=== PATIENT | female | born 2005 | race Caucasian/White ===

== ENCOUNTER 2023-01-20 15:00 | Outpatient (OUT) | payer OTHER, SELFPAY ==
--- NOTE | 2023-01-20 15:50 | CA_ITS ---
Patient: MADELIN BUSTAMANTE Exam Date: 01/20/2023 : 2005 Gender:F Ordering : DR Chuckie Cornelius . Admission #: [id number] Family : Order #: [id number] CLICK HERE TO VIEW EXAM ECHOCARDIOGRAM REPORT PROCEDURE: CA ECHO DOPPLER COMPLETE INDICATIONS: Chest pain COMPARISON: None. DESCRIPTION: COMPLETE ECHOCARDIOGRAM Real-time transthoracic echocardiography with 2D, M-mode, spectral and color flow Doppler performed. QUALITY: Technical quality was excellent. LEFT VENTRICLE: Normal chamber size. Normal left ventricular wall thickness. LV EF: Global left ventricular systolic function is normal. Visual estimation of left ventricular ejection fraction is 65%. No significant wall motion abnormalities. DIASTOLIC: Normal diastolic function. ATRIAL SEPTUM: Inadequately seen. LEFT ATRIUM: Normal chamber size. RIGHT ATRIUM: Normal chamber size. RIGHT VENTRICLE: Normal chamber size. Normal right ventricular systolic function. TRICUSPID VALVE: Normal mobility and thickness. No stenosis with trivial regurgitation. No evidence of pulmonary hypertension. RVSP 23mmHg MITRAL VALVE: Normal mobility and thickness. No evidence of mitral valve stenosis. There is no mitral annular calcification. Trivial mitral regurgitation. AORTIC VALVE: Normal trileaflet appearance. No visible sclerosis. Normal leaflet mobility. No evidence of aortic valve stenosis. No aortic regurgitation. AORTIC ROOT: Normal diameter and appearance. PULMONIC VALVE: Normal thickness and mobility. No stenosis. Trivial regurgitation. PERICARDIUM: No evidence of pericardial effusion. IVC: Collapses with inspirations. Normal size. CONCLUSION: Essentially normal echocardiogram Adult Echocardiography Procedure Report Left Ventricle LVEDD (3.7 - 5.6 cm): 4.52 cm, 4.32 cm LVESD (2.2 - 4.0 cm): 3.20 cm, 3.07 cm LVIVS thickness (0.6 - 1.2 cm): 0.53 cm, 0.61 cm LVPW thickness (0.5 - 1.0 cm): 0.68 cm e': 0.19 m/s E - e': 4.46 LVOT Max Gradient: 2.58 mm[Hg], 2.37 mm[Hg] LVOT Area (cm2): 0.79 m/s Peak Velocity (LVOT): 0.80 m/s, 0.77 m/s Mean Velocity (LVOT): 0.54 m/s LVOT Diameter 1.70 cm Left Ventricular Ejection Fraction: 69.97 % Left Atrium LA Volume Index (2D A2C): 23.10 ml/m2 Left Atrium Systolic Dimension: 2.55 cm Mitral Valve MV E to A Ratio: 1.50, 1.30 Mitral Valve A-Wave Peak Velocity: 0.60 m/s Mitral Valve E-Wave Peak Velocity: 0.84 m/s Right Ventricle RV Internal Diastolic Dimension: 2.74 cm Aorta AO Root Diam: 2.05 cm Ascending Ao Diam: 2.22 cm Aortic Valve AoV Area (Peak Russell): 1.51 cm2, 1.50 cm2, 1.52 cm2 AoV Area (VTI): 1.51 cm2, 1.52 cm2, 1.50 cm2 Peak Velocity(Antegrade Flow): 1.22 m/s, 1.15 m/s Peak Gradient(Antegrade Flow): 5.93 mm[Hg], 5.32 mm[Hg] Mean Velocity(Antegrade Flow): 0.86 m/s, 0.79 m/s Mean Gradient(Antegrade Flow): 3.32 mm[Hg], 2.87 mm[Hg] Velocity Time Integral: 23.30 cm, 22.06 cm Tricuspid Valve Peak Velocity (Regurgitant Flow): 1.55 m/s, 1.80 m/s, 2.25 m/s Pulmonic Valve Mean Gradient: 2.15 mm[Hg], 2.12 mm[Hg], 2.63 mm[Hg], 2.53 mm[Hg] Mean Velocity: 0.69 m/s, 0.68 m/s, 0.77 m/s, 0.75 m/s Peak Velocity: 1.00 m/s Peak Gradient: 3.98 mm[Hg], 3.75 mm[Hg], 4.21 mm[Hg], 3.98 mm[Hg] Right Atrium Right Atrium Systolic Pressure: 23.96 ml, 23.96 ml Dictated by: Davnote Stark M.D. on 01/20/2023 at 16:28 Approved by: Davonte Stark M.D. on 01/20/2023 at 16:33
== END 2023-01-20 15:01 | disposition home or self-care (01) ==
LOC: CARD 15:01
PROVIDERS: PCP Family Medicine; Visit Provider Family Medicine
DX: R07.9 Chest pain, unspecified (principal)
CPT/HCPCS: 93306

== ENCOUNTER 2024-04-10 10:07 | Outpatient (OUT) | payer OTHER, SELFPAY ==
--- OUTSIDE RECORDS SUMMARY | 2024-04-10 10:16 | XMS_ITS | CCD ---
Author Organization [facility] Care Team Providers Care Hall Porter Name Role Phone DR IVAN CORNELIUS Consulting Unavailable DEISIY, DR LOVE Attending Unavailable DEISIY, DR LOVE Admitting Unavailable DEISIY, DR LOVE Primary Care Unavailable Ivan Cornelius MD Primary Care Provider [phone] LANNY PEÑA Referring Unavailable HOY, IVAN M Primary Care Unavailable HOY, IVAN M Primary Care Unavailable REBEL, LANNY M Referring Unavailable HOY, IVAN M Primary Care Unavailable REBEL LANNY M Attending Unavailable REBEL, LANNY M Referring Unavailable HOY, IVAN M Primary Care Unavailable KROTZER, LANNY M Attending Unavailable KROTZER, LANNY M Referring Unavailable HOY, IVAN M Primary Care Unavailable HOY, IVAN M Referring Unavailable HOY, IVAN M Primary Care Unavailable HOY, IVAN M Referring Unavailable HOY, IVAN M Primary Care Unavailable PETER ESTRADA Attending Unavailable HOY, IVAN M Referring Unavailable HOY, IVAN M Primary Care Unavailable Medications Current Medications Medication Drug Class(es) Dates Sig (Normalized) Sig (Original) fluconazole 150 mg oral tablet (1 source) Azole Antifungal Start: 01-13-2024 End: 01-16-2024 fluconazole (DIFLUCAN) 150 mg tablet Indications: Vaginal yeast infection Take one tablet by mouth today. May repeat in 3 days if symptoms persist. 2 tablet 01/13/2024 01/16/2024 Active ibuprofen 800 mg oral tablet (3 sources) Nonsteroidal Anti-inflammatory Drug Start: 01-02-2023 End: 02-09-2024 take 1 tablet by mouth three times daily ibuprofen (MOTRIN) 800 mg tablet Take 1 tablet (800 mg total) by mouth 3 (three) times a day. 21 tablet 01/02/2023 02/09/2024 Discontinued (Therapy completed) ondansetron 4 mg disintegrating oral tablet (4 sources) Serotonin-3 Receptor Antagonist Start: 12-10-2022 End: 02-09-2024 take 1 tablet by mouth every eight hours as needed for nausea ondansetron ODT (ZOFRAN ODT) 4 mg disintegrating tablet Dissolve 1 tablet (4 mg total) on tongue every 8 (eight) hours as needed for nausea for up to 10 doses. 10 tablet 01/23/2024 02/09/2024 Discontinued (Therapy completed) pseudoephedrine hydrochloride 60 mg / triprolidine hydrochloride 2.5 mg oral tablet (3 sources) alpha-Adrenergic Agonist End: 02-09-2024 take 1 tablet by mouth every four hours triprolidine-pseudo ephedrine (APRODINE) 2.5-60 mg tablet Take 1 tablet by mouth every 4 (four) hours. 02/09/2024 Discontinued (Therapy completed) Problems Active Problems Problem Classification Problem Date Documented Date Episodic/Chronic Abdominal pain (4 sources) Pain in pelvis; Translations: [Pelvic and perineal pain] Onset: 02-09-2024 02-09-2024 Episodic Alcohol-related disorders (1 source) Alcohol abuse with intoxication, uncomplicated; Translations: [Alcohol abuse with intoxication, uncomplicated] Onset: 01-23-2024 Chronic Contraceptive and procreative management (3 sources) Patient encounter status; Translations: [Encounter for initial prescription of contraceptive pills] Onset: 04-03-2024 04-03-2024 Episodic Inflammatory diseases of female pelvic organs (3 sources) Acute vaginitis; Translations: [Acute vaginitis] Onset: 01-12-2024 01-12-2024 Episodic Menstrual disorders (6 sources) Dysmenorrhea; Translations: [Dysmenorrhea, unspecified] Onset: 02-09-2024 02-09-2024 Chronic Mycoses (1 source) Candidiasis of vagina; Translations: [Vaginal yeast infection] 01-13-2024 Episodic Nausea and vomiting (2 sources) Vomiting Onset: 01-23-2024 Episodic Other female genital disorders (1 source) Vaginal discharge Onset: 01-12-2024 Episodic Ovarian cyst (2 sources) Cyst of left ovary; Translations: [Unspecified ovarian cyst, left side] Onset: 03-29-2024 02-16-2024 Episodic Screening and history of mental health and substance abuse codes (2 sources) Standardized adult depression screening tool completed ; Translations: [Encounter for screening for depression] Onset: 02-09-2024 02-09-2024 Episodic Unclassified (1 source) Gynecologic Exam Onset: 02-09-2024 Past or Other Problems Problem Classification Problem Date Documented Da te Episodic/Chronic Deficiency and other anemia (1 source) Anemia, unspecified; Translations: [ANEMIA UNSPECIFIED] Onset: 11-30-2021 Episodic Diabetes mellitus without complication (1 source) Other abnormal glucose; Translations: [OTHER ABNORMAL GLUCOSE] Onset: 11-30-2021 Episodic Mood disorders (3 sources) Mood disorders Onset: 02-09-2024 02-09-2024 Syncope (4 sources) Syncope and collapse; Translations: [SYNCOPE AND COLLAPSE] Onset: 11-27-2021 Episodic Results Test Name Value Interpretation Reference Range Facility POCT , urineon 03-22 Beta HCG ( test) Ql (U) Negative [facility] Internal Paint Supervisor Check Completed and Passed Yes [facility] US PELVIC WITH TRANSVAGINALo n 03-29-2024 US PELVIC WITH TRANSVAGINAL US PELVIC WITH TRANSVAGINAL US PELVIC WITH TRANSVAGINAL HISTORY: Left ovarian cyst, pelvic pain COMPARISON: Pelvic ultrasound 02/14/2024 TECHNIQUE: Transabdominal and transvaginal sonographic evaluation of the pelvis. Transabdominal imaging performed to evaluate for extra adnexal pelvic pathology. Transvaginal imaging performed for better delineation of the adnexal and endometrial contents. Color Doppler used. FINDINGS: Uterus: 7.5 x 5.0 x 3.6 cm Endometrial Thickness: 11.6 mm Right Ovary: 3.3 x 3.5 x 1.9 cm Left Ovary: 3.3 x 2.3 x 1.7 cm The uterus demonstrates appropriate size and echo pattern. The endometrium is unremarkable. The ovaries are unremarkable. Normal color flow bilaterally. No adnexal masses demonstrated. Small volume of free fluid adjacent to the left ovary, likely physiologic. IMPRESSION: * Resolution of previously noted hemorrhagic cyst in the left ovary. No further imaging follow-up recommended. Approved by Naya Salas MD on 03/29/2024 1:47 PM Reji Vidal MD have personally reviewed the image(s) and agree with and/or edited the report Finalized by Reji Patel MD on 03/29/2024 1:58 PM Normal [facility] US PELVIC WITH TRANSVAGINALo n 02-15-2024 US PELVIC WITH TRANSVAGINAL US PELVIC WITH TRANSVAGINAL Pelvic ultrasound History:Pelvic pain Comparison: Findings: Transabdominal and transvaginal sonographic evaluation of the pelvis. Transabdominal imaging performed to evaluate for extra adnexal pelvic pathology. Transvaginal imaging performed for better delineation of the adnexal and endometrial contents. Uterus measures 8.4 x 4.0 x 5.5 cm. Endometrial complex measures 1.4 cm. Right ovary is unremarkable measuring 3.4 x 1.5 x 2.6 cm. Left ovary measures 5.5 x 2.7 x 3.9 cm. A lesion is seen in the left ovary measuring 4.3 cm with appearance suggestive of a hemorrhagic cyst. Small volume free pelvic fluid, likely physiologic. Impression: Cystic lesion suggestive of a hemorrhagic cyst in the left ovary. Follow-up pelvic ultrasound is recommended in 6-12 weeks in a woman of reproductive age. Optimally, the exam would take place in the follicular phase, days 3-10, of the menstrual cycle. Recommendations for adnexal cyst follow-up per Society of Radiologists in Ultrasound 2009 consensus statement on management of asymptomatic and ovarian and other adnexal cysts (Neff et al., Radiology 2010 256: 943-54). Finalized by Benny Damico MD on 02/15/2024 7:52 AM Normal [facility] Cytologyon 02-09-2024 Cytology Normal [facility] Comment on above: Result Comment: [facility] [address] [place] [address] Gynecologic Cytology Consultation Patient Name:MADELIN AHUJA:2005 (Age: 19)Gender:FTaken:4Reported:4Physician(s):Lanny Peña, MASOUD-POSTAL SORTING OFFICER ([phone])Copy To: Rec. #:[id number]: #[id number] Final Cytologic Interpretation ThinPrep Pap Test (Cervical): Satisfactory for evaluation. A transformation zone component is present. NEGATIVE FOR INTRAEPITHELIAL LESION OR MALIGNANCY. lrd/02/26/2024 Interpretation performed at [facility], [address] [place] [id number], License number: [id number]. Electronically Signed Out By MIK William, (ASCP) Date of Last Menstrual Period: 01/16/24 Other Clinical Conditions: Z01.419 Bead Maker exam wo/abn findings Source of Specimen ThinPrep Pap Test (Cervical) Thin Prep Pap (WAREHOUSE SHIFT SUPERVISOR) Fee Code(s): G0145 The Pap test is a screening test with an inherent, but low, probability of error. The Pap test is primarily effective for the diagnosis and prevention of squamous cell carcinoma. Regular screening is critical for prevention. ThinPrep liquid-based slides, which meet the Maintenance Mechanic criteria for automated screening, have been screened by the [employer] (as of 12/06/06) along with an additional manual rescreening by a professor of economics and, if indicated, by a pathologist. CHLAMYDIA/GC BY PCRon 2023 CHLAMYDIA/GC BY PCR SPECIMEN SOURCE CERVIX CHLAMYDIA DNA(PCR) Negative (qualifier value) Chlamydia trachomatis not detected by nucleic acid amplification. This does not exclude the possibility of infection because results are dependent on adequate specimen collection. GONORRHOEAE DNA(PCR) Negative (qualifier value) Neisseria gonorrhoeae not detected by nucleic acid amplification. This does not exclude the possibility of infection because results are dependent on adequate specimen collection. Normal [facility] Comment on above: Performed By: #### C #### [facility] ([id number]) [address] [place] [address], [address] [place] [id number] VAGINITIS PANEL PCRon 2023 VAGINITIS PANEL PCR BACT. VAGINOSIS DNA Not detected (qualifier value) Qualitative results are reported based on detection and quantitation of targeted organism markers which include: Lactobacillus spp. (L. crispatus and L. jensenii), Gardnerella vaginalis, Atopobium vaginae, Bacterial Vaginosis Associated Bacteria-2 (BVAB-2) and Megasphaera-1 VAL SPECIES DNA Detected (qualifier value) Val species result based on detection of one or more of the following species: C. albicans, C. tropicalis, C. parapsilosis or C. dubliniensis VAL KRUSEI DNA Not detected (qualifier value) No Val krusei detected VAL GLABRATA DNA Not detected (qualifier value) No Val glabrata detected TRICHOMONAS VAG DNA Not detected (qualifier value) No Trichomonas vaginalis detected NOTE BD MAX Vaginal Panel has not been evaluated for patients under 18 years old. Results for these patients should be reviewed and assessed in accordance with clinical presentation to determine patient diagnosis. Normal [facility] Comment on above: Performed By: #### V PPCR #### [facility] ([id number]) [address] [place] [address], [address] [place] [address] INSULINon 11-28-2021 Insulin 11.3 uIU/mL Normal 2.6-24.9 [facility] Comment on above: Performed By: #### I NSULIN #### [facility] [address] [place] [address] Dr. Jd Brown T4, T3U, FTI LABCORPon 11-28 Free Thyroxine Index 1.8 Normal 1.2-4.9 [facility] Comment on above: Performed By: #### T HYLC #### [facility] [address] [place] [address] Dr. Jd Brown T3 Uptake 29 % Normal 23-[address] [facility] Comment on above: Performed By: #### T HYLC #### [facility] [address] [place] [address] Dr. Jd Brown T4 [Mass/Vol] 6.1 ug/dL Normal 4.5-12.0 [facility] Comment on above: Performed By: #### T HYLC #### [facility] [address] [place] [address] Dr. Jd Brown CBC AUTO DIFFon 11-27-2021 BASO # 0.1 103/ul Normal 0.0-0.1 [facility] Comment on above: Performed By: #### C BC #### [facility] [address] [place] [address] Dr. Jd Brown Basophils/100 WBC (Bld) 0.8 % Normal 0.2-2.0 [facility] Comment on above: Performed By: #### C BC #### [facility] [address] [place] [address] Dr. Jd Brown EO # 0.1 103/ul Normal 0.0-0.[address] [facility] Comment on above: Performed By: #### C BC #### [facility] [address] [place] [address] Dr. Jd Brown Eosinophils/100 WBC (Bld) 1.0 % Normal 0.9-7.0 [facility] Comment on above: Performed By: #### C BC #### [facility] [address] [place] [address] Dr. Jd Brown Erythrocyte distribution width (RBC) [Ratio] 12.3 % Normal 11.0-15.0 [facility] Comment on above: Performed By: #### C BC #### [facility] [address] [place] [address] Dr. Jd Brown Hematocrit (Bld) [Volume fraction] 40.1 % Normal 36.0-48.0 [facility] Comment on above: Performed By: #### C BC #### [facility] [address] [place] [address] Dr. Jd Brown Hemoglobin (Bld) [Mass/Vol] 13.2 g/dL Normal 12.0-16.0 [facility] Comment on above: Performed By: #### C BC #### [facility] [address] [place] [address] Dr. Jd Brown IG # 0.02 10e3/ul Normal 0.00-0.03 [facility] Comment on above: Performed By: #### C BC #### [facility] [address] [place] [address] Dr. Jd Brown IG % 0.3 % Normal 0.0-0.[address] [facility] Comment on above: Performed By: #### C BC #### [facility] [address] [place] [address] Dr. Jd Brown LYMPH # 1.4 103/ul Normal 1.2-3.[address] [facility] Comment on above: Performed By: #### C BC #### [facility] [address] [place] [address] Dr. Jd Brown Lymphocytes/100 WBC (Bld) 22.9 % Normal 20.5-60.0 [facility] Comment on above: Performed By: #### C BC #### [facility] [address] [place] [address] Dr. Jd Brown MANUAL DIFF REQ NO Normal [facility] Comment on above: Performed By: #### C BC #### [facility] [address] [place] [address] Dr. Jd Brown MCH (RBC) [Entitic mass] 31.1 pg Normal 26.7-34.0 [facility] Comment on above: Performed By: #### C BC #### [facility] [address] [place] [address] Dr. Jd Brown MCHC (RBC) [Mass/Vol] 32.9 g/dL Normal 29.9-35.2 [facility] Comment on above: Performed By: #### C BC #### [facility] [address] [place] [address] Dr. Jd Brown MCV (RBC) [Entitic vol] 94.4 fL Normal 81.0-99.[address] [facility] Comment on above: Performed By: #### C BC #### [facility] [address] [place] [address] Dr. Jd Brown MONO # 0.5 103/ul Normal 0.3-0.[address] [facility] Comment on above: Performed By: #### C BC #### [facility] [address] [place] [address] Dr. Jd Brown Monocytes/100 WBC (Bld) 8.1 % Normal 1.7-12.0 [facility] Comment on above: Performed By: #### C BC #### [facility] [address] [place] [address] [address] Jd Brown NEUT # 4.1 103/ul Normal 1.4-6.5 [facility] Comment on above: Performed By: #### C BC #### [facility] [address] [place] [address] Dr. Jd Brown Neutrophils/100 WBC (Bld) 66.9 % Normal 43.0-75.0 [facility] Comment on above: Performed By: #### C BC #### [facility] [address] [place] [address] Dr. Jd Brown Platelet mean volume (Bld) [Entitic vol] 9.8 fL Normal 9.5-13.[address] [facility] Comment on above: Performed By: #### C BC #### [facility] [address] [place] [address] Dr. Jd Brown PLT 263 103/ul Normal 150-[address] [facility] Comment on above: Performed By: #### C BC #### [facility] [address] [place] [address] Dr. Jd Brown RBC 4.25 106/ul Normal 4.20-5.40 [facility] Comment on above: Performed By: #### C BC #### [facility] [address] [place] [address] Dr. Jd Brown WBC 6.2 103/ul Normal 4.0-11.0 [facility] Comment on above: Performed By: #### C BC #### [facility] [address] [place] [address] Dr. Jd Brown GLYCOHEMOGLOBIN A1Con 2021 ADA RECOMMENDATION SEE BELOW Normal [facility] Comment on above: Result Comment: ADA RECOMMENDED LIMIT 4.0 - 6.0 ADA THERAPEUTIC TARGET < 7.0 ACTION SUGGESTED > 7.0 Performed By: #### A 1C #### [facility] [address] [place] [address] Dr. Jd Brown Glucose [Mass/Vol] 94 mg/dL Normal [facility] Comment on above: Performed By: #### A 1C #### [facility] [address] [place] [address] [address] Jd Brown HbA1c (Bld) [Mass fraction] 4.9 % Normal 4.5-6.2 [facility] Comment on above: Performed By: #### A 1C #### [facility] [address] [place] [address] [address] Jd Brown IRONon 11-27-2021 Iron [Mass/Vol] 47.0 ug/dL Critically low 50.0-170.0 [facility] Comment on above: Performed By: #### I LAURA #### [facility] [address] [place] [address] [address] Jd Brown LIPID PROFILEon 11-27-2021 CHOL-HDL RATIO NORM SEE BELOW Normal [facility] Comment on above: Result Comment: 3.3 - 4.4 LOW RISK 4.4 - 7.1 AVERAGE RISK 7.1 - 11.0 MODERATE RISK >11.0 HIGH RISK Performed By: #### T SH, LIPID, CMP #### [facility] [address] [place] [address] [address] Jd Brown Cholesterol [Mass/Vol] 177 mg/dL Normal 104-[address] [facility] Comment on above: Performed By: #### T EMELI, LIPID, CMP #### [facility] [address] [place] [address] Dr. Jd Brown Cholesterol in HDL [Mass/Vol] 66 mg/dL Normal 29-[address] [facility] Comment on above: Performed By: #### T EMELI, LIPID, CMP #### [facility] [address] [place] [address] [address] Jd Brown Cholesterol in LDL [Mass/Vol] 87.8 mg/dL Normal 46.0-140.[address] [facility] Comment on above: Performed By: #### T SH, LIPID, CMP #### [facility] [address] [place] [address] [address] Jd Brown Cholesterol.total/Ch olesterol in HDL [Mass ratio] 2.7 {ratio} Normal [facility] Comment on above: Performed By: #### T SH, LIPID, CMP #### [facility] [address] [place] [address] [address] Jd Brown HDL NORMAL > or = 60 mg/dl - LO W CARDIOVASCULAR RISK <40 mg/dl - HIGH CARDIOVASCULAR RISK Normal [facility] Comment on above: Performed By: #### T EMELI, LIPID, CMP #### [facility] [address] [place] [address] [address] Jd Brown LDL CALC NORMAL SEE BELOW Normal [facility] Comment on above: Result Comment: <100 mg/dl OPTIMAL 100 - 129 mg/dl NEAR OR ABOVE OPTIMAL 130 - 159 mg/dl BORDERLINE HIGH 160 - 189 mg/dl HIGH >190 mg/dl VERY HIGH Performed By: #### T EMELI, LIPID, CMP #### [facility] [address] [place] [address] Dr. Jd Brown Triglyceride [Mass/Vol] 116 mg/dL Normal 53-208 [facility] Comment on above: Performed By: #### T EMELI, LIPID, CMP #### [facility] [address] [place] [address] [address] Jd Brown VLDL CALC 23.2 mg/dL Normal [facility] Comment on above: Performed By: #### T EMELI, LIPID, CMP #### [facility] [address] [place] [address] Dr. Jd Brown PROF 14(COMP METB)on 022 Albumin [Mass/Vol] 4.2 g/dL Normal 3.4-5.0 [facility] Comment on above: Performed By: #### T EMELI, LIPID, CMP #### [facility] [address] [place] [address] Dr. Jd Brown Albumin/Globulin [Mass ratio] 1.4 {ratio} Normal [facility] Comment on above: Performed By: #### T EMELI, LIPID, CMP #### [facility] [address] [place] [address] Dr. Jd Brown ALP [Catalytic activity/Vol] 68 U/L Normal 46-116 [facility] Comment on above: Performed By: #### T SH, LIPID, CMP #### [facility] [address] [place] [address] Dr. Jd Brown ALT [Catalytic activity/Vol] 15 U/L Normal 14-59 [facility] Comment on above: Performed By: #### T EMELI LIPID, CMP #### [facility] [address] [place] [address] Dr. Jd Brown Anion gap [Moles/Vol] 11.2 mmol/L Normal [facility] Comment on above: Performed By: #### T EMELI LIPID, CMP #### [facility] [address] [place] [address] Dr. Jd Brown AST [Catalytic activity/Vol] 14 U/L Critically low 15-37 [facility] Comment on above: Performed By: #### T EMELI LIPID, CMP #### [facility] [address] [place] [address] Dr. Jd Brown Bilirubin [Mass/Vol] 0.4 mg/dL Normal 0.2-1.0 [facility] Comment on above: Performed By: #### T EMELI LIPID, CMP #### [facility] [address] [place] [address] Dr. Jd Brown Calcium [Mass/Vol] 9.3 mg/dL Normal 8.5-10.1 [facility] Comment on above: Performed By: #### T EMELI LIPID, CMP #### [facility] [address] [place] [address] Dr. Jd Brown Chloride [Moles/Vol] 103 mmol/L Normal 98-[address] [facility] Comment on above: Performed By: #### T EMELI LIPID, CMP #### [facility] [address] [place] [address] Dr. Jd Brown CO2 [Moles/Vol] 29.5 mmol/L Normal 21.0-32.0 [facility] Comment on above: Performed By: #### T EMELI LIPID, CMP #### [facility] [address] [place] [address] Dr. Jd Brown Creatinine [Mass/Vol] 0.70 mg/dL Normal 0.55-1.02 [facility] Comment on above: Performed By: #### T EMELI, LIPID, CMP #### [facility] [address] [place] [address] [address] Jd Brown EGFR-AF PORTUGUESE >60 Normal >=60 [facility] Comment on above: Performed By: #### T SH, LIPID, CMP #### [facility] [address] [place] [address] [address] Jd Brown EGFR-NON AF PORTUGUESE >60 Normal >=[address] [facility] Comment on above: Performed By: #### T SH, LIPID, CMP #### [facility] [address] [place] [address] [address] Jd Brown Globulin (S) [Mass/Vol] 3.0 g/dL Normal [facility] Comment on above: Performed By: #### T SH, LIPID, CMP #### [facility] [address] [place] [address] Dr. Jd Brown Glucose [Mass/Vol] 88 mg/dL Normal 74-106 [facility] Comment on above: Performed By: #### T SH, LIPID, CMP #### [facility] [address] [place] [address] Dr. Jd Brown Potassium [Moles/Vol] 3.7 mmol/L Normal 3.5-5.[address] [facility] Comment on above: Performed By: #### T EMELI, LIPID, CMP #### [facility] [address] [place] [address] Dr. Jd Brown Protein [Mass/Vol] 7.2 g/dL Normal 6.4-8.2 [facility] Comment on above: Performed By: #### T SH, LIPID, CMP #### [facility] [address] [place] [address] Dr. Jd Brown Sodium [Moles/Vol] 140 mmol/L Normal 136-145 [facility] Comment on above: Performed By: #### T SH, LIPID, CMP #### [facility] [address] [place] [address] Dr. Jd Brown Urea nitrogen [Mass/Vol] 12.0 mg/dL Normal 6.4-19.[address] [facility] Comment on above: Performed By: #### T SH, LIPID, CMP #### [facility] [address] [place], [place] [address] Dr. Jd Brown Urea nitrogen/Creatinine [Mass ratio] 17.1 mg/mg Normal [facility] Comment on above: Performed By: #### T SH, LIPID, CMP #### [facility] [address] [place], [place] [address] Dr. Jd Brown TSHon 11-27-2021 TSH 0.888 uIU/mL Normal 0.516-4.130 [facility] Comment on above: Performed By: #### T EMELI, LIPID, CMP #### [facility] [facility] [address] [address] [address] Jd Brown Coding Summaryon 07-11-2021 Coding Summary HTMLBase 64 SkrccpaeZXf5pHm+PGhlY WQ+QX2JRNHwQ90wqXPonR 1AR7lUIS6CMCCURFLCNJ7 DVK0jzMS8SJiuX4GogjAr AnomsRCmAJ86BNt7BSJ0a FbtKBiroG2vzLZyW2q7Wi OrBL20zC58QIzrCHNaDaR 3LjZpbjsgbWFy H1huPwPxuMDxUqg+PHRhY mxlIHdpZHRoPScxMDAlJy MrsHoaWZ4oHq6kEKQuQXE vbGxhcHNlOiBj a3ecUVEjBAecXR3rhSbaC 2CyrAI8GJJrc1l3Ti67tG I+KPUeGYK3eGltJEoeq90 2ZlElw2noFVG0 zAOaIZulPCV9R90yx6C0W IAvSHGcXRR6xPW3pB7zbA zprnbyY0QneHRpVtC1ELP 4iOFfhI0fvDyk ctmwkL9bYfy+L05LWL3VC JAORU6HQon8C6GwHgtzxZ I+ES30HDPhDF54jOUrvHE bb1bueGw5CqIx QWUeXXN2cLhuEDwtq4MqC LEbL86rnJSvz5Q2QKZkyX ixyXJsUlBmlOG5xT0aJMl orygdy2jppifl Tdaih6gohd85hN81X50fJ LwdBRTsCKO3UGIeMMTraX rpde9xeC8hAa6+CRimu7b pn6rpoOt1PiHr LIAvycTbuAzfFKO0n0FpT b84D5PmkSsqb8NpAmm6up 98wELbr9B9lVF2VUeaTJT hvU9nEMxsSlJ7 XMCxCuFuqV09zCYgZErsG f3ppMsukYvxRH9pUWYfky miDJWjnF5cDDPxeDLkgEj oFW5jSRSuokiy a643DoTyMYG4BWRmtAJwU 3TcwI2qIzZsDXBwZHMbQ6 YuzHRiEPzyT834SYnfHoI 2NZEjwoLqC7Jn CPFjyMnbKjU8y2B3Jf5Nx 4QlbehtMKV6BEgzZBQ9Wn NqIlJdIeO6G4UzYvz7RYO ucWnwZS1vT4Xe RXQctzlnxboizFF0QVMcV LOrqQ50cIHpGWxmHh7tf1 A0b710LDFdTTSovU23Up7 udDogMTBwdCBU jB2puqtkr3rpiagpKwUgP MCwIRr3UKi7WBPjsHjhAb DgPAO0BaR5DCY9vRAzvF1 cfQogqokqrZ1o Oyc+E74wbV2lRGH1VYL6e hliDDXhqdCmCJ20HV92L2 RyPjwvdGFibGU+PGRpdiB gjIwyKV1uVrQv f0rtr3PxUCezN3CrCYGdL TtqOma2TAJgYZP6iOO0dM 6sRRDnAQgdq9Q9pQN1M4O qhrZnoe7of0yg YDZbVZyoQ70mfXFgd0E3W UFtiEX1DYFwdCmcCeKrcZ 93Oyc+XBKecKcnt2AkIhj xu1nwv4fxnWl9 EiQbSQGlbeIpiSrhFHW7s 6XsRu12C74eUSbmNUHiXY HvVQPgTYWvtBanli2psN1 wIi8+PGNvbCB3 nXH3oB6vTFZiTgH2NGvrP 378BcJnaPCyXjqan1vva7 hsrKm2SbSiAXXamtXuiKy oEIW6e3MmZt06 B56fWMgtKLHiFURbWXHtE VDjkCzrrj8wbD4nRi7+PC 8rw1vjzo14dQ84aKZ+PHR gMLI6bExbFNdh MUNkzM2uSBmnWdJ4WJAtL pHsgB04tWGjKXcrOx4ucN hswHtmZU8yKYMxlyzru52 3WuJfr4guFGLx vVXgKWgbWGR2J30it8M2J QGuIRXkQCW1iJD8gR7eeX lnbjogbGVmdDsgdmVydGl mQFdrTJgfB617 IHRvcDsnPlBhdGllbnQgT uWwFTj8X8NsEab8JGSnpL bqKB0ajPReUTdkFa2yjRq yiDgwPQ6tXXWq chonu607VgRmd4dgJKNod KFnBBkzSPU2H87rg1M4EI VkSTOxXTJ3tCW9bR6xtIx nbjogbGVmdDsg bnZaxCzcMEzpRKrcN928O HRvcDsnPkJpcnRoIERhdG Y9RR89QJ16fPOug1P5hSD 6O6XcEWHhunov qzoflKR7XBYcIJNtjY12A r0ncRgbDv5bZMYtZBV1DN PzrLMvN6VhiE7wLuQdWVM rBIGaK7TzhSRj PQzqU433SJheNwD7RBXic zDuL0ItWXErgXxpXxK6r2 C2Mv1IA1T6DD63MQ21gZR fa0L0bUV7E0Xm YJLcfzetjadkzFP7SYYkK BLvnM33Ip3bgWzaJo1oPS YxGSE7CWZgoHPgQ8RreK8 yOiAjMDAwMDAw Q7ChjMJqSIymQ818KCsrZ sT3WOXuvyZjX3IwQFCmwN isNqB9w8D2Us7FEWa7DZ8 0FT75iLIso0E6 yMG4V2PkMZPtqnzzowuoo NB3DPAkSKZdpN36Cp5xnG dmUe3tNQPlNPW5OHIniFY pM6NjbC9yEmTe ODPdHZAoC8EgcALpTFubR 397PKhbTiJ0ZPGogrJeS0 PrQJVmlPieFfC9k6X3Is6 KRADdCW68PDC0 pVK2DP49OS02X4TjBcqlx GFibGU+PHRhYmxlIHdpZH RoPScxMDAlJyBzdHlsZT0 iNt0wZVDoDYSj mQlxkURsHvSsy8wsXWYiI IbpZR9qwOouB1CfjXO8NW Ooj9q8Fw96C59bE6PyiVX +YRIoeNN7zEF9 lJ8kIpZiLbD3HYwzY719I xDfsGKeVosnr1fhm7krqX b7QtU4GUEawkTsjAnaEOW 2k2HaBl56T18t IHdpZHRoPSIxNSUiIHZhb Kbtxz3loM6qAx8+PGNvbC F2bSG5sO4rEhCiXrW1SDq mP517DjXrlTFz Lnwat6pho7wpwDh1XnApJ EGgyfUdeAtrETR1q3XvYe 19D8OsxMjlq4TfRpo4gd4 1yBFbd5C4nUF0 U9TgRCXdtcwmaGErvSteJ Q8tLRDhfmnzSQQnaU8vYP GrF1o2VmXtUcD7NFndN1Q cawL4AHDsxIUk CNylOWI4M57tn3S0OCQsQ HKjJDO6wHQ5bJ0yhBythr ogbGVmdDsgdmVydGljYWw hOSuxO140NWDi gLmjLAItvM4gBQOeaDHpx OmxMO5vGXSrveflPnVIOE QUGPIXQ1hHVoaMHORNPE8 ANO96YT94oDNk h5Q7gYI0I0ToKLAncyfvv yglgMT2VPChPYMibQ67vA FdNOpsXd7td0F4s405XMK bZRCvaJ89Bj6r vBgkQNDxvQEViB0ncdrbo 5mvopqeHyXbDAZbNHj9RB u1GHEvhZvwBlMxXIF0MtM 2OHY0iBXquV3w oQjpzixmoT9aNzr+MTAvM TgvMjAwMzwvdGQ+PHRkIH D1gFwnSVrlFXCnnP4eBKO vP5z7BrGeGrI0 ARdgE8YqGJWtqgvbDt27x H2uXaDnUsK3BYyaV0Quey O9OMXjaOZqKVynSKZ9F56 vy6G8PWPeJBUi HOG8nJV3nN7yoBzneewqz GVmdDsgdmVydGljYWwtYW udI602DHVeoSezCwK1QSl fUYDsJG40CE94 kCMjc3N6aKY9X7FaVQJih tuvxqlvdEE7OGNkKXFusR 64pGGbYUhlMc4ze2I4p67 5DGYtRGBaxJ29 Fp9lfUesMLUckJUKhZ5fo upkw3vmliruRjIqAGSqEE v9PWk2MAOagXjcTuArMKG 1FlL3CPV1iKFp dR6iuBbaxpcmlE0uAhd+R uVUQPlFMY25RN94oWFnb8 E3dKV3H3UxRLVbixjftoz wjQY1BKZzCGYw jR11jRPgOEgcPb3lg6J3v 804RGHcUPFtiF09Ep4vqO saALHnsMUQfG5srdatp5t vcjogIzAwMDAw KEl7TBs1NGLinMbvRuFuH HC4FnN1CPM2jFNkxT0hiT sinjtwsA4rElm+U9K4P3Z kPjwvdHI+PC90 XQEvAI74sXQzaLNeb4wgl Im3CcUnRKYoAOZ0nNzdRY llj7ItLJUgA13anOZcs2D 6IGNvbGxhcHNl FfAszBV8dB0tQGkzwdeub 9iuyfgiDeyca3jezv85iY 55M88jEPsfANQlRJOqRWJ fWHKvkGwyst9l yC3sWe0+AGHjaYG5nPP9j Q1qDtJjWhZ5AIetY391An PzaHTvTovck0xdw5nodNk 9IjIwJSIgdmFs dFokTCX1q0WuKj12Z57eG HdpZHRoPSIyMCUiIHZhbG bvhf1ljS3iXt4+RL6fp0c pdx66vD43gWX+ XMLwUOK0aPzpRZimKJHor Z1vRPuuCqX8DLMhPsRnkH 16dXJhRRnhTv8thTctdEk lBK1hOTOgzajc r195HwQgy2teJOYajPHlX GfdGWQ1Y43ka8J7MGGcOZ QxHVN9bVG5mW0ksAomcyj gbGVmdDsgdmVy cWutJDrlIAlaC690FGFvc ZmwCeYnzLXcL8wdajCKQS 1lOjwvdGQ+IGWqQXI6pPu kGVohNDXluQ1y BOPyC7m9LfLrSnL2UTgnZ 9NsavQ9NUVkqMIiGTBqxJ DCbO6gwncrj0xilpjqElS pBILuGSs0YWe7 KJNnmChjIjUxDFG7FgL5V AS2hPNdhO6zaPgyfqairG 9wOyc+RklOOjwvdGQ+PHR mHFO1zWpgTFzy PPKuvN0eKSXzQ1h8MsKxM vU7EHemD5OxgkU7RXJejZ LtXUVhgTXPrB9eabnbr6d vcjogIzAwMDAw IPb9BHe6CIIgnEbrZrXqK TZ6GaA7YLP9xHMidT7byR vziffzpY0cKmm+TVJOOjw vdGQ+PHRkIHN0 cDviAVmaCFFxmO9xNDDyO 1n2EdItYmY4GDlqL0Jckv Q5DJXzjUOjZSVcuFSUcQ6 ccjcmc8nowloy MtNyYPChGXu9LDc6LBDna GhsRjUfILQ4ZzU8UFH4sD YygI1bsImwfbmirJ4nHqu +RAD7UHJ5SY20 BA21P0MuNsrnmKXobGJ+P HRhYmxlIHdpZHRoPScxMD JkMkQaoXqpGK8yXs2vQDH yLWNvbGxhcHNl OiB (more content not included)... [facility] Coding Summary HTMLBase 64 EyzncgahIIj6zMh+PGhlY WQ+AX9UGYQkT05dtEGciJ 5GW2mOIE5FDPANRXOGGR6 ZNT0mdLY9SDodD3OjhyHc ThjpjUNhJZ22IKj7QMV4k ZxdYZyeeH4ypNKrX3a0Me ZnCN09kJ34ZTjmMEUnCuJ 3LjZpbjsgbWFy V7vhUmFfuNOrFau+PHRhY mxlIHdpZHRoPScxMDAlJy BcsMzwJM0jIg9eLJNrZHM vbGxhcHNlOiBj h6ysRZLpFOrwUX0dkNceC 6ByaIG8CJArz5i6If91dG I+JAClYXV8mEpsNZcaa52 1NlJkq7fkBSL5 pFJtJNkyTKC3A33kf0X7Q PMcGNLzDPF7uRU6fN3bqU ourvjcS7KncQCtAtW7MIK 8lADghT4uiQux ftymgL1lRpy+T36QPS1OM PIYPU6TOgs4V7BwHrmyyY I+NC82IBWvLK48lGXqyMB lz6cuyKt3XyCr RIMbFOX8wAonAHkog7HsN CGqC87viLFfz8O2KBXlhY vgmEIwEoEjgMT4hW9jGBo ctejyk8hwprsh Ytytj8lpcr08lM58A45uE LupQUUcLVO6ILSuHVDtsD isgj2qsH9wPa7+TPtsr7e az1decGz0IaHw BYNdnlZpaOjtFMQ5o1VsQ p99V0OieHdhu5IlCey3bq 50dOWiy3F4mAM5BBwuBJG hjR5yOQtmWlU9 DELoBpMkdE49sQJgGPweY w4nqQtjlVejQU3rZUBemo cxNMXoiI3uRFBvbABdnBh iAQ8pCANzaxeb g195ZyCmSCU2AWItmDVrD 0FszS8sKzXvAWAhYQKwY6 IevLWgETelI084HFkmTzN 7XFAzfkKhA9Vj BHJbnQddCcE2o4W2Ct0Nq 5ExzucmTZV1FSfcLUC0Hz YwPnScVaC9D6OjNqe9VFX kmLrwND5eT0Eo ARLrjpuvfufndVX8GPAvJ IEqwU87lKAxPUauXp1va9 K2p925GCKwAUNniN11Ue1 udDogMTBwdCBU eA5kyknhc5fghwypLkVmP XToVXo8GFr0HZBekWccBu EjMWA4SkG2UDS0pOOdkF5 lpWndfypwoD5u Oyc+V92hrG6wCNR9WGD8t orgBVVajjEtBZ97TO02B8 RyPjwvdGFibGU+PGRpdiB dpVhxVW3iRjYn d4inf2DlCSbjQ9RxMOXqX LklIcr6PZKhBGT5zFI3gF 0pWYKkLSdmw7N8eXC2Q2J rpmJvmf4ad9oi RDVaBOdvM79kbGKpi8M4L SPywZU1WQDhfFobIaLojW 93Oyc+FTAwvUxbq6RyTxo fk1qmw8ykzUz0 YeYnJHMwikGbbFvfKTS1c 7QlMy85O38wTWrgXRYiCH PkSGArWNDjeXyqki0cbI2 wIi8+PGNvbCB3 lAY4iU0gXXNwWrC6GGwiG 574FqQprLCuMvcto1akh2 tdjQe1LuMhQJOjeeHsxZm oRNC8m6CbAj44 N44lWWtlGOPiOYTcPPOmI WEuzDdwip2rqW4hJx1+PC 6yp5emlx19wN67pAT+PHR bLGN0xSavXYpf KUDgxU3mBBdjYuC9OFLlH xUmuS04aTHoUMmaEu9vxB bluWlfGG6wJNCwrtzed99 7HjJvh0ijGDQj aDUjPFieFGR8P30lr9N6H QGxTOHfKAC9cRO6jF1ihO lnbjogbGVmdDsgdmVydGl yCHxbDHzsV668 IHRvcDsnPlBhdGllbnQgT kUgMOx7X4FnApe9OEBiwK qwGI2kyCGfBAhsWk1teIv ukNibPS5pODBs enzhs515GzRcr4reDYPck QJuOYxhHFA4X42wj5L5MP KfEWBmNFM1lGX7lQ9ccEv nbjogbGVmdDsg zdDlcEozZSeuUTzuC377E HRvcDsnPkJpcnRoIERhdG Q9AV06QE10tOZhp6K8cVT 6P6GdWNAuiehk sncshMR3MSKcXOAlnH78V s2teFozFv8bBHAkHEB0GS JfcOFmJ7NwcE3iWlJdMGS lLSQgW8TunJLg BMlsI228BBchMzU4YLOjo bJhB3YtZFFfeAhkTgQ9m3 P7Dk3DU4I8PD56CD24yTO ri6L5jGH2M0Ly ALAstfajqxhgwCZ1KGBtJ DKxrM12Su1fdOczBo2lMA JtISD3EFQgoYBmH8EhvH9 yOiAjMDAwMDAw R0WnpHRtCBnjU867VFeeH yG2XWBfwoXnL2DmVGRraK vwZaH9y3S9Pf8WEKe9PU1 7DV67gBQol9O8 jDM3X6QwRTYnpagrhagjw MJ9QOTlFRAgcJ74Qd4seN eiQf3cGEAgAUL2NLUozJZ eU6FhoO2fPpXe FJJsEHLbT2LtaYZmCIknG 816JEhnVoF0EWFgjfPrU9 LwGSMbtDkxNgE2s6P3Dy8 VNRCeZG20NVY1 mLI8OT74DX97U1GmKpnay GFibGU+PHRhYmxlIHdpZH RoPScxMDAlJyBzdHlsZT0 iOc1eYOFbHLPg yAyfwFBpIiIyp6ueJCOaK QccUF3yoGuhE0MpgMK6MN Ecg4l1Mz36H37kR7LriWI +QJSvbEU0mPP7 hX1zArSaKbC0OZwuJ708W kEemPBnOmccb8fiy0zglG m2TvY1GEYjpmPazCmvPLH 6r3HtDr63G85j IHdpZHRoPSIxNSUiIHZhb Ktajq5btW6oAh3+PGNvbC Q2iHA8bG3bNgGgPbA3YCw bW924CsDmlJRw Pvvyw6gan9srxZp2TqKmF CRkfyAcuRvyXQU4u4YrQu 73C4ZjtOfzp0IiUae1fm0 0aMRwd3Q4jNU5 G9QkZXYlkqljiBGjcMwsX A8vAKTmrvveVIDtpY0rSQ FoH1k1NeDdEbF1JVutE0D krvV4ASOsdGWr HFnkIVV3W74fl9U7PKPhA JRfSJO7lNN5iP2glQjqis ogbGVmdDsgdmVydGljYWw hWOaoL229LSIz mNxdIMIpyS4vDKLmyTEsk DomMX3gTHAohxkzJhHHMZ OJVGYKA4gBKecCEIDYKK5 GIE19AA19bIDv m8R7zJB7P7DbQQOqniqhn sowxMZ2CKBmXKKgiT24yJ AfPMjxVw8eq7P2h614GUD sOBKmhE43Mv2q hHalKDVipTKBhS1yaggdq 3jtxggyVlDeBTJaAGp2HQ c2LMBrlZugLwUnDVZ8XvR 9JCG2aHUfgW7l rCleeccvqB1fWzd+MTAvM TgvMjAwMzwvdGQ+PHRkIH I3mWimUYqsQAQqnK3uQPE mU7d2CfChYhG5 CQaqE4GwQTBkjbhyQn89i A8yOlNvRzL3HLqlI2Reuk U3FJAijTZeNHowATT1X77 se5N9GIIoFYCz BLF8iJJ3kK8yzZvvaypsy GVmdDsgdmVydGljYWwtYW qtN919SUEkhCmdMhS7VKy aHUZzNU00WS65 mXHce7B1bUG3V6ErXKZir goynqfmdUJ2GDOqSAOmwO 07vNDxFQlgQf7be8T1z81 2VYIlKHPelK61 Xv5vrHsuNYPbjLHEaT3fi nvlu9uhvljyBqAmJDQyWN a0KFv9QBRkbKayQyPgYGS 3BiO8ERX5cLKf iB3jnVvxrbltpQ3wYij+R jZUTDaTGZ58HM95uREsa4 T9wLW7H9MzMWTxqrxnrdf blMV4OGHmLBSz mI96cJGcOYhlJp0mi1Y9c 712RMQtCWIeqT27Qy4ngV ymSUDtuFVZmW5ogqqoz9l vcjogIzAwMDAw WFb3NIh1JPHmrNlcQfKdX RM0RpV7ZHJ6eBBswC5buB mbafqmwQ2eRhp+XP3toaw xzyJ9AP37GH81 M0RvLnwkhCNqnAY+PHRhY mxlIHdpZHRoPScxMDAlJy LhyForEI1bHx0yVTZbNGW vbGxhcHNlOiBj u5efVTQfGDxeBW5cqHchT 0DmeJR2DQHxc7e4Kw68T4 6dY7ByeEB+USQhyXJ7cBQ 3mB9mKfNgUoU6 OCobO784ZjAyyXQcBqfny 9evb2wqbSq8EvVtJLRsmv LotTdhYUC7x4DzHf56F76 sIHdpZHRoPSIy JDLoBPVqcCvivj6meO9oP i8+ARUqcLC2dVW6qJ7pXd DgObN8LNryB612TsQhzPH gRlwpW08tN6Df dXA+XTQjTpd6YVXfnKgzD K4nvQWjJBivOu8cJMI9Ln HoHtKzHIywH6CfHHFbqum vipjpgGW9MJYv UBBmmS87Rx0ufIzdKk6aH XHzAUT8AMVycWJkO5WtvN 9kKpBsJPFaHJJnH5HkzII dHOamK909XMba FqQ1JVFxscMaG5QgXNEen NoiBsM1p0N0Gb2OtHfxiF ZxBF0rAaAvEUd5X4WiUan 1IXLjzTowSA9p fYHzNYgjRv5vjIhyeCefN F1fYQVtmryuf154UeOba8 mkXIMruTSmQAffPQQ1H12 ry2Z3MEYmPZRq FFV4rYY4sS2reTzxlxjyg GVmdDsgdmVydGljYWwtYW asY956GGAgkZjrChEFRgz 6R5TuWpw9ITYg rIzkSE0ffVXmENzlUr1dl JnofOsnCR3fBPGbzhgsz0 16PvQjh3ubQDSmqFUqDQn tCVT9U63mn2P3 SMDjHPOsTYN8iKW0vY0km GlnbjogbGVmdDsgdmVydG ysYYmdMNuiK060OBXliYj mWn0YVuc3R7Xt Tha5DFXpwDtmOG7gaLZeU MuyOy0hqCknnXwlZC4tLS Lqnpqlc706CyAum0nzHBO wcHQgVGltZXM7 S53sl7R0GUPxYZHjIOT8t BA2zM3jaLlxmxxsnUYhbB ohbzPktVizFJihCZeoH93 6IHRvcDsnPlBh eWVyOjwvdGQ+PA29az64T 7UoOnxcOsi1DDOxJSZ9uD C6bY1kCHWhGHfsp3A2dST 6K6QoyfBead2b b2x (more content not included)... [facility] Coding Summary HTMLBase 64 MbtapjehVGq7qLy+PGhlY WQ+YT4LCDVyM31vfXHtoN 4WJ6oRPV2UMOABNVSMEW9 QXC5nnFW9JYncS1GvpaGe UpldbGBuST33QTp9GWP8y SzmEMzudJ0qdOXyD1a8Ka CdAK80sG85SUusNOLrKbM 3LjZpbjsgbWFy M4vnMtBscNTiEjn+PHRhY mxlIHdpZHRoPScxMDAlJy UzeMshIV8eRm5mTDBqILY vbGxhcHNlOiBj r4fyAJXwNXplFU6dfKcvF 6KemGR4VLHcq6c0Wt09lM I+HWAxHQD9iYadZRtho54 0OfYfp0dxRZY9 qNErNQpeFJK0A63cw5I1Z ILiSRXxGPE0aTQ4fM0thR rfwrlaL2ZuhNAbUaS6YJE 1fXFbaG6acAqr frqvdQ2fOfn+Y78EYE0BI IMADS7IFoa6G7BmLeituD I+OU47ITXcEB77wYEpqFX ec2vbpPt8NcLr HMRkMPG1dUqkHKgcb2DqV RQcC65ktUWrm5M4VIDjbC jlrLSkRlLcuIH8pR7zIOz akufsi0tguxgy Oeurp3cphw27vO55L61yO NteRSZtISP9TUBdPEHosW rnuz6iiP2yHp6+VNksn4z nw2jnbRa2FaQw MZNtpcLmeIsiXXE3x7DiJ y42P8KpmRryr7VwRsf5sq 69sAIva4X7nFV2HVdiHRZ wlC6kTHcwCeE7 OLJbIlQijM23aKVeIEdlK k9mcIsybYpeQT8wLSAckb fjFHAohP9eRURyfAIkxXm rPE0jUJVvgftn b807RiJfODS6SMYzbXYhP 5NzpZ7xAoSwCDZgJRBaZ2 IypUNdNXngO740UApePnR 8QZHlmbMfQ8Kf FAIoxSsaTkF1r7E9Lb1Gh 3LarnpfPAD8ASonOVB7Fk TpHcOyFvS7T5SzRar2ZDC mcWqsLM5fI5Qn TTRtiovkstparLL3GCJkY YSsyW84dIQnDJzeWw9as9 I7f907OZDePJCtrC13Ov7 udDogMTBwdCBU cT8ljqnaa9fhwbhkLbKoS GOfIWc1NUm5DFFnyQbpNi YzGPM4SxD1BMH9cNOllL6 zyErrozakzO5u Oyc+D67vvJ0nGXC6WAQ1b xdaZIPiruNyGV03DB36L4 RyPjwvdGFibGU+PGRpdiB jbWdaGQ4wBxOe v8dov0VcADynW5QkBTTkZ OsmTdl4KLKnWZL6xZF1kC 9tECHkWKxfn8S3uXG5F6A lyuTter1ds5za DTTgCVhbX71srAZuz2C6N FAttBX2KAWweLtpXwQrnZ 93Oyc+QHTigPsbb4ZvSbg cc5vob3jihMk1 ZiUoWASumqUvwFraJGE8a 0NtZr25K91vJFdwUAHbIB LhTDXiITFpwHjixw6vzI2 wIi8+PGNvbCB3 rSM6fD9gKVDmPsC8INjaR 944ZbIxkVQxQqrgt8mzi7 bcqSo3DeBnNCRuayVzrTv yOXZ1s5QhJy94 B18dOGxiBQYmWMHhGDHyC HUmgXtkrz6nnV5vKz4+PC 3hg2bgdg99qX70sZO+PHR wGLX1dIpxFQki MRKgqK8jERtqDjC1CKYlU iRhxM55iWNvCQtvLe2htH cfvKmpWZ9yGOIdhncwc69 4MdZgp9epFVDl mPLkWMhxWPJ8B28cy9B1I AUeMSJeSPT3rHT0yH6bsX lnbjogbGVmdDsgdmVydGl hJGvxUCdqP729 IHRvcDsnPlBhdGllbnQgT zIhMKj7M4CrJwy4HKPhkH tdDO5lkHAoRDvpMj6sbLh wpDzbHL4uINUq riwxv903JhDta9ziJDChr LAmEAdjXMV5I99lk6C0RG CsXLPaPUU4mIK9iE9wcYo nbjogbGVmdDsg fyIvoFlaFUeiBHwjD318V HRvcDsnPkJpcnRoIERhdG C5NZ72ZR21pXLmc1P4eDD 5X7SlRFLswlcz rpreyDW4ZBUjOCFroW43O k5frLciAh9yFVOgYNF0AC ZvbCQhD5SfiD6nMjKzYRC gNMBtG7ZzkGCw GQmsY633CTmuOaB5JPGet xBnD8GzNDFfzNzsWaI9m1 Q1Iq0SV9P7GE41RT41nZI qw5E5vMA2W9Zg GJJvjjcjaqtwlNY6BLYlW KKvhA73Px3giMspLg2xXA JqIVB2VXNqnGZcW5GkfL2 yOiAjMDAwMDAw U7EqkDNiXRjsV917EHrzW bQ9LXLcqvHgF1SnCEXrpX lbDiI2r0D7Tn2VFEy8NP2 9DD20eDOuq0L4 eIG7V0XbZSUnkxxmysfzg ED6AABvPOUvqU47In7pyU afVn6fFJLoCPV8HBTzlSS gY0HleM3qUpHo IHDmHYVqM4DoiZOnTDxyX 102LKkaWqL5JJUhrsVwS3 RvCFSzxNppRwS9b2Q7Ep2 XGAQwZP82ZAH5 dVC4JS85LR08H0HyBpnbm GFibGU+PHRhYmxlIHdpZH RoPScxMDAlJyBzdHlsZT0 aEy3sLOKlEDVr oBadkMHmDoTnu7iaMURkV UapSK2jvWhdN1YfwZA6BY Woa5j7Kq51F51yV0EnoQE +JVCljQU5nOV0 aM1yPvXmBbF1MHbbP475P pEffKQfKfzmq1tkt2umxX x4QtK4ZGUtaxJfzLliQBE 0u4CcDj23C79r IHdpZHRoPSIxNSUiIHZhb Kzwfg5fyF9jWw3+PGNvbC B1tOL1bK1jHxOqKhO5OVz qP149HpMxcAEv Gjfqk8rqf1ewuFu8JpCsJ DZamuGasJveYBT1e0ZnWv 78Y7YutMney4BaLah9ld3 9fMNap7V2pDE9 D4ZeHYMysdbjnYOnhHgaF Q9uJVEhzutdCDSduI9bLG FnX7u3KnEoWgZ8HBavQ6Q amlL0WRDuzTAa KXyiKTC1Z51wa1C0PMSrP GInZCY9pVS9iI8nkEccap ogbGVmdDsgdmVydGljYWw bRUvjY795KKBn iSsgYRXntG5tTODifGQna ZcvUC7gHUImigfqRmBCSX HPYVHOA3sSDesSPZYMAJ1 JXI89CY88eTOo f9Q3vKZ7U8NmIFNjkflws ggzjWV1ZMOqKHVzoJ69wI OhNDlwDd3hw8Q9i484WXN eKFPczX34Ri0x jTejNLWsnJMBzS0dvyjmj 8tgjhdtWuPnGZKyWSe7MY y2XTCdeSwnKoItDNU0OhS 6XTM8tYIocY4v lYgdvbqbzQ8jJdg+MTAvM TgvMjAwMzwvdGQ+PHRkIH J0xTuuHDrcUPTmqG0dSGP fN4r5CxXjLjD3 JGxrI7WdQVBdvpcvXh12w Q1aVrDnBoT8OThrL0Lrci B0BRIjuHXtHVqpHQM2S15 zz5M1XKXfLDZz JSS4hAF4dY0kcJsuvdpgl GVmdDsgdmVydGljYWwtYW mdU568YVIbtOkhViZ5OFv gLXQiMY90TF87 uXQzd4T6pYA0L3CpHTDsl yemumiquHF7GDUvJYUaxG 30cPLbGBwwDa9gc9O2e50 9KMBsRZTngC76 Ih1ftPgzZNDxcZGVhW1cf nwyg8ifovmkVkAcPYYjAH a1YOd1QQJkcJkeYvIzDKK 0IrT3ZJC6sPIq sD2wvRrzyxozqW7kHzv+R kMFNSkQWX82MC56sFRmw6 X4hKH8Q7CdTPCujbdiboc etNS0SAXjIQGj nS42oTXfCScjPc7ct9J2m 083DQEoBNJdmP54Uu8ibZ kdHQCkeGYEaQ1voireo1a vcjogIzAwMDAw VIl4GEh0LBIejVhpHkTaE GH0ArJ0BXJ5dECqeE8ebC orrnzywG5nJeg+ET5gknc mgsA0BF11YA96 A8ZlPhmqgQOnkDN+PHRhY mxlIHdpZHRoPScxMDAlJy XhfMmkCY8dPs2pGLGkDZE vbGxhcHNlOiBj q5tyPBMqPRwfQT5evXptP 1CbyOJ7XMXfe7z2Yo64P3 3mO3ElpSN+UDWysOK5sTW 2eZ5vCsXoNpN6 IEplQ593CuThvYAsRdygo 3uqn2rpjXq8OsRsGTFiwq JujBxgACP2x9BjKy65S48 sIHdpZHRoPSIy AMNqHOBzjUkncg8pyZ2dO i8+GZWzxZA0tIV4oK6bFx LgYyT1RYktF686HxUphTY zZljiD11bT6Mj dXA+PFTuOcd6EAJdqWlyX F9ujCCsHOzfTl0vOHE4Pu NkAzKiCLpdT3YaOTEixdj giaqhxAY4TCDb PXUedW17So1qzQtqXn4yG BGyJNH9ZSIoyURrR1QmpA 9aSkLtEGLlKTMeE6AzuPJ kRFqqA961EUvu PjY1CWJiubXpN6SgTSNms SdrPoS8r2N9Od7BpQxrfD QtVB6jOhXkBBs8X8MqAkr 2MHTnwRehWI9d lUPvGHbtCm3nbVurcYygA T9oBJNipkhlg398CtXbr5 dsWSAskKLfIVdxMMY7U94 nj6D7NWTbCFVl CBJ4iFH8eG2xgLsmubnvq GVmdDsgdmVydGljYWwtYW xdV073JXDbdIipRfWBKxy 2G6SwCjv5NDBx bPzeQY0lcFTcWKlkKu7pt DmysQziBA5nGTErlduwz3 08GyGuv3yjRORtoUPrBSz oKUW6R98mr6H6 UCUqBRJtGQZ7vOY2uQ6ej GlnbjogbGVmdDsgdmVydG slABpyJWsdC426MSCsoCf bZv5PMwe4B3Xo Gcx1SFPjlNbfPW8jiNQeW XuoJy7esMhyhYmtGL3wWI Eddbmzz464ZaHsw1gbENA wcHQgVGltZXM7 S99lb7L0OIAwKXKhORQ2k MB8zS7ogMskaumslXAlqS vtuxEdgUjuRXdjNZcuS29 6IHRvcDsnPlBh eWVyOjwvdGQ+WN21fc88N 7BxHvzuFge3BVVqZSW4mS Z5wS3vJFIxJQeoh0L2tGE 0K3IfglZvgr1j b2x (more content not included)... Normal [facility] .Auto Diff 1on 07-05-2021 Auto [place] % 7 % Normal 04-02 [facility] Comment on above: Performed By: #### 2 192230, [id number], [id number], 3577543, 45016976, 2491567 #### [facility] (DEFAULT) [address] [place] [address] Baso Abs# 0.0 x10 Normal 0.0-0.2 [facility] Comment on above: Performed By: #### 2 840269, [id number], [id number], 4558896, 24686959, 8727370 #### [facility] (DEFAULT) [address] [place] [address] 67679 Basophils/100 WBC (Bld) 0.2 % Normal 0.2-2.0 [facility] Comment on above: Performed By: #### 2 549676, [id number], [id number], 5062928, 31689979, 4951777 #### [facility] (DEFAULT) [address] [place] [address] 55025 Eos Abs# 0.1 x10 Normal 0.0-0.4 [facility] Comment on above: Performed By: #### 2 509504, [id number], [id number], 0652280, 87842388, 7041832 #### [facility] (DEFAULT) [address] [place] [address] 45871 Eosinophils/100 WBC (Bld) 1.3 % Normal 0.9-4.0 [facility] Comment on above: Performed By: #### 2 256074, [id number], 8526562625, 7079605, 01916537, 3957963 #### [facility] (DEFAULT) [address] [place] [address] 16216 Lymph Abs# 1.4 x10 Normal 1.3-2.9 [facility] Comment on above: Performed By: #### 2 647413, [id number], 7836220552, 5037010, 50470196, 6065141 #### [facility] (DEFAULT) [address] [place] [address] 64788 Lymphocytes/100 WBC (Bld) 14 % Normal 14-48 [facility] Comment on above: Performed By: #### 2 274683, [id number], 4271013130, 5228353, 54274893, 3789149 #### [facility] (DEFAULT) [address] [place] [address] 54319 Hemphill Abs# 0.8 x10 Normal 0.0-0.8 [facility] Comment on above: Performed By: #### 2 961807, [id number], 0633663285, 0089341, 11774644, 7285243 #### [facility] (DEFAULT) [address] [place] [address] Neut Abs# 8.1 x10 Normal 1.5-9.2 [facility] Comment on above: Performed By: #### 2 687438, 5787562799, 5312967603, 7954898, 00626821, 0954301 #### [facility] (DEFAULT) [address] [place] [address] Neutrophils/100 WBC (Bld) 78 % Normal 44-88 [facility] Comment on above: Performed By: #### 2 751211, 0569401042, 1970165335, 7235513, 55863251, 2249030 #### [facility] (DEFAULT) [address] [place] [address] CBC w/ Auto Diffon 2 Erythrocyte distribution width (RBC) [Ratio] 13.0 % Normal 11.5-15.0 [facility] Comment on above: Performed By: #### 2 785222, 2708861928, 9297469929, 6584957, 66942359, 9439021 #### [facility] (DEFAULT) [address] [place] [address] Hematocrit (Bld) [Volume fraction] 40.9 % High 33.7-40.4 [facility] Comment on above: Performed By: #### 2 688621, 4646457224, 1275041193, 9519641, 02981939, 5504727 #### [facility] (DEFAULT) [address] [place] [address] Hemoglobin (Bld) [Mass/Vol] 13.7 g/dL Normal 11.3-15.9 [facility] Comment on above: Performed By: #### 2 159520, 3957587449, 7083440440, 5460849, 13777053, 9190710 #### [facility] (DEFAULT) [address] [place] [address] Instr WBC 10.4 x10 Invalid Interpretation Code [facility] Comment on above: Performed By: #### 2 929949, 5072604545, 1853780225, 9345953, 44658521, 2307490 #### [facility] (DEFAULT) [address] [place] [address] 33155 Man Diff? Auto Normal [facility] Comment on above: Performed By: #### 2 056481, [id number], 9072911696, 6978614, 89651796, 2871596 #### [facility] (DEFAULT) [address] [place] [address] 67888 MCH (RBC) [Entitic mass] 31 pg Normal 24-34 [facility] Comment on above: Performed By: #### 2 360635, 2429887814, 0918299382, 5475129, 85913393, 5952330 #### [facility] (DEFAULT) [address] [place] [address] 15923 MCHC (RBC) [Mass/Vol] 34 g/dL Normal 26-37 [facility] Comment on above: Performed By: #### 2 969932, [id number], 7042081172, 1731555, 13832941, 4084513 #### [facility] (DEFAULT) [address] [place] [address] 58234 MCV (RBC) [Entitic vol] 92 fL Normal 81-100 [facility] Comment on above: Performed By: #### 2 399874, 9808082750, 7282184150, 3856297, 36743280, 3446712 #### [facility] (DEFAULT) [address] [place] [address] 29485 Platelet 230 x10 Normal 138-427 [facility] Comment on above: Performed By: #### 2 308198, 0369050686, 9544023293, 9025871, 96270386, 1360263 #### [facility] (DEFAULT) [address] [place] [address] 36232 Platelet mean volume (Bld) [Entitic vol] 10.1 fL Normal 6.3-10.2 [facility] Comment on above: Performed By: #### 2 273349, 6187597405, 7385368239, 2935882, 80995856, 9023436 #### [facility] (DEFAULT) [address] [place] [address] RBC 4.42 x10 Normal 3.70-5.30 [facility] Comment on above: Performed By: #### 2 445601, 5133967722, 1588240174, 2607305, 41261868, 9147624 #### [facility] (DEFAULT) [address] [place] [address] WBC 10.4 x10 Normal 3.5-10.5 [facility] Comment on above: Performed By: #### 2 729700, 2968398075, 9769710319, 9483048, 62666721, 5993924 #### [facility] (DEFAULT) [address] [place] [address] Standardon 07-05-2021 eGFR Non AA >60 Invalid Interpretation Code [facility] Comment on above: Performed By: #### 2 874224, 9830652488, 7070725646, 5909405, 03988508, 1087105 #### [facility] (DEFAULT) [address] [place] [address] eGFR AA >60 Invalid Interpretation Code [facility] Comment on above: Result Comment: Deicer Repairer sammie Kidney disease could be indicated at eGFRs of less than 60 ml/min/1.73m2. Kidney Failure is indicated at less than 15 ml/min/1.73m2 Performed By: #### 2 036944, 2378155451, 8332278433, 0561527, 75077205, 6393566 #### [facility] (DEFAULT) [address] [place] [address] 81921 Albumin [Mass/Vol] 4.6 g/dL Normal 3.5-5.0 [facility] Comment on above: Performed By: #### 2 157746, 7583475664, 9885603289, 4493774, 28927772, 9458883 #### [facility] (DEFAULT) [address] [place] [address] 39575 Albumin/Globulin [Mass ratio] 1.6 {ratio} Normal 1.4-2.6 [facility] Comment on above: Performed By: #### 2 988137, 8638038123, 1913605852, 3958423, 20262311, 3075154 #### [facility] (DEFAULT) [address] [place] [address] 95058 Alk Phos 64 IU/L Normal 32-91 [facility] Comment on above: Performed By: #### 2 408851, [id number], 6826464128, 1411110, 24814251, 9079143 #### [facility] (DEFAULT) [address] [place] [address] 27156 ALT [Catalytic activity/Vol] 16.0 U/L Normal 8.0-29.0 [facility] Comment on above: Performed By: #### 2 564433, 1336023416, 5531553890, 3435284, 15482396, 0981104 #### [facility] (DEFAULT) [address] [place] [address] 24906 Anion gap [Moles/Vol] 18.0 mmol/L Normal 5.0-19.0 [facility] Comment on above: Performed By: #### 2 007775, [id number], 8159669182, 7429642, 65489874, 1804495 #### [facility] (DEFAULT) [address] [place] [address] 34469 AST [Catalytic activity/Vol] 23 U/L Normal 14-37 [facility] Comment on above: Performed By: #### 2 023416, 8039507753, 5558125759, 0701816, 15935752, 1258598 #### [facility] (DEFAULT) [address] [place] [address] 87344 Bili Total 0.6 mg/dL Normal 0.0-2.0 [facility] Comment on above: Performed By: #### 2 968930, 4807734753, 6607102211, 6907436, 82797711, 0743664 #### [facility] (DEFAULT) [address] [place] [address] 71810 Calcium [Mass/Vol] 9.8 mg/dL Normal 8.9-10.3 [facility] Comment on above: Performed By: #### 2 079862, 0636690827, 4187704668, 0110463, 31955603, 0069712 #### [facility] (DEFAULT) [address] [place] [address] 33480 Chloride [Moles/Vol] 101 mmol/L Normal 101-111 [facility] Comment on above: Performed By: #### 2 428170, 2399172639, 2739954105, 9759239, 64166586, [id number] #### [facility] (DEFAULT) [address] [place] [address] 87456 CO2 [Moles/Vol] 25 mmol/L Normal 21-32 [facility] Comment on above: Performed By: #### 2 [id number], [id number], [id number], [id number], [id number], [id number] #### [facility] (DEFAULT) [address] [place] [address] 26110 Creatinine [Mass/Vol] 0.68 mg/dL Normal 0.30-1.00 [facility] Comment on above: Performed By: #### 2 [id number], [id number], [id number], [id number], [id number], [id number] #### [facility] (DEFAULT) [address] [place] [address] 03852 Globulin (S) [Mass/Vol] 2.9 g/dL Normal 1.5-4.3 [facility] Comment on above: Performed By: #### 2 [id number], [id number], [id number], [id number], [id number], [id number] #### [facility] (DEFAULT) [address] [place] [address] 21711 Glucose [Mass/Vol] 90.0 mg/dL Normal 56.0-144.0 [facility] Comment on above: Performed By: #### 2 [id number], [id number], [id number], [id number], [id number], [id number] #### [facility] (DEFAULT) [address] [place] [address] 60561 Osmolality 280 mOsm/L Invalid Interpretation Code [facility] Comment on above: Performed By: #### 2 546056, [id number], [id number], [id number], [id number], [id number] #### [facility] (DEFAULT) [address] [place] [address] 44206 Potassium [Moles/Vol] 3.5 mmol/L Low 3.6-5.1 [facility] Comment on above: Performed By: #### 2 014114, [id number], [id number], [id number], 13893774, 1573536 #### [facility] (DEFAULT) [address] [place] [address] 97339 Protein [Mass/Vol] 7.5 g/dL Normal 6.1-8.0 [facility] Comment on above: Performed By: #### 2 385110, [id number], [id number], 4359116, 11184830, 2634645 #### [facility] (DEFAULT) [address] [place] [address] 50919 Sodium [Moles/Vol] 140.0 mmol/L Normal 136.0-144.0 [facility] Comment on above: Performed By: #### 2 669711, [id number], [id number], [id number], [id number], 8954959 #### [facility] (DEFAULT) [address] [place] [address] 19590 Urea nitrogen [Mass/Vol] 16 mg/dL Normal 8-26 [facility] Comment on above: Performed By: #### 2 382511, [id number], [id number], [id number], 87948562, 4458461 #### [facility] (DEFAULT) [address] [place] [address] 37572 Urea nitrogen/Creatinine [Mass ratio] 24.0 mg/mg High 4.6-16.2 [facility] Comment on above: Performed By: #### 2 445096, [id number], [id number], 5774028, 31561550, 5267326 #### [facility] (DEFAULT) [address] [place] [address] 57412 D-Dimeron 07-05-2021 D-Dimer 0.23 mg/L FEU Normal 0.19-0.50 [facility] Comment on above: Result Comment: The INNOVANCE D-Dimer assay (Cutoff Value of > 0.50) is intended for the use as an aid in the diagnosis of venous thromboembolism (VTE) deep vein thrombosis (DVT) or pulmonary embolism (PE). The measurement of D-Dimer should not be used as an aid in the diagnosis of VTE in patients with: ? Therapeutic dose anticoagulant therapy for >24 hours ? Fibrinolytic therapy within previous 7 days ? Trauma or surgery within previous 4 weeks ? Disseminated malignancies ? Aortic aneurysm ? Sepsis, sever infections, pneumonia, severe skin infections ? Liver cirrhosis ? Performed By: #### 2 525886, [id number], [id number], [id number], [id number], [id number] #### [facility] (DEFAULT) [address] [place] [address] ED Clinical Summaryon 2021 ED Clinical Summary [facility] - Emergency Department [address] [place] [address] ED Clinical Summary PERSON INFORMATION Name: MADELIN AHUJA Age: 16 Years Sex: FEMALE : 2005 MRN: Acct#: Visit Reason: Abdominal pain; ABD PAIN Arrival: 07/04/2021 22:55:52 Discharge: 07/05/2021 01:32:00 LOS: 000 02:37 Check In: 07/04/2021 22:55:52 Checkout:07/05/2021 01:32:00 Address: [address] [place] [address] PCP: Lanny Martins PROVIDER INFORMATION Provider Role Assigned Unassigned Nathaniel Drew DO ED Provider 07/04/2021 22:59:46 Lisa RN, Celeste Rai ED Nurse 07/04/2021 22:59:47 VITALS INFORMATION Vital Sign Triage Latest Temperature Tympanic Temperature Temporal Artery Pulse Rate 81 bpm 81 bpm O2 Sat 99 % 99 % Respiratory Rate 14 br/min 14 br/min Blood Pressure /88 mmHg /88 mmHg MEDICAL INFORMATION Medications Given: Medication Dose Route ibuprofen 400 mg PO Allergy Information: No known allergies PHYSICIAN DOCUMENTATION DISCHARGE INFORMATION: Discharge Disposition: Home Discharge Location: Home PATIENT EDUCATION INFORMATION Instructions: Abdominal Pain, Adult, [id number] Follow-Up: With: Address: When: Lanny Lino [address] [place] [address] Business (1) Within 3 to 5 days Comments: home ibuprofen ---four hundred mg three times per day, as needed heating pad this should all resolve, but still recheck with Dr Lino for an ultrasound Call Dr Drew, in the ER, anytime next three days, nights [phone] x [phone], and Dr Drew will call you tomorrow evening to check on you T H REBECCA< ER PHYSICIAN< [facility] DIAGNOSIS: Patient Understands: Yes - Patient/family/caregi lucy verbalizes understanding of instructions given Comment: [facility] ED Note - Physicianon 2021 ED Note - Physician Patient: MADELIN AHUJA Age: 16 years Sex: FEMALE : 2005 Associated Diagnoses: Abdominal pain Author: Nathaniel Drew DO Basic Information Time seen: Date & time 07/04/2021 22:55:00, The patient is ambulatory to her examination room, appears in no distress, she is amatory without assistance, she is with another person with whom she is laughing.. History source: Patient. Arrival mode: Private vehicle, walking. History limitation: None. History of Present Illness The patient presents with This patient presents to the emergency room for evaluation of abdominal pain is been present throughout the day, sharp, initially started right lower quadrant and then several places in her abdomen and occasionally to the right upper chest, no medications were taken for this, she has not had this in the past, she is just over her period, she states that her periods are normal, she has not had any emesis, no bowel movement problems no urinary symptoms, she is employed, and she works throughout the day at [employer], in [employer]. She takes no medicines on a chronic basis; Family history: Her mom and grandmother both had hysterectomies for endometriosis. However, this is the first time this patient is experienced this problem. Social history: Non-smoker, lives at home, here with her mom, she is the oldest child and family. They do have a physician, Ms. Lanny Lino Physical exam: Pleasant alert, smiling appears in no distress, HEENT exam is normal, neck is supple, she is not overweight, and she ambulates very easily. There is no anterior posterior supraclavicular nodes, lungs are clear, with no expiratory wheeze or rales or paradoxical chest motion, heart rate and rhythm is regular murmur, PMI left chest, the abdomen is soft, some vague discomfort in the right lower quadrant but also the she indicates more now in the right upper quadrant. Not so much in the left upper or lower quadrants. Bowel sounds are normal she is definitely not overweight she will her with 90 pounds. Cavities are nonswollen nontender, she is smiling and well disposed, has a normal neuro exam. Psychiatric evaluation is appropriate. I do not think ultrasound is indicated at this time an emergency basis I also did not think a CT is indicated emergency basis, we checked her labs her labs are all okay.. Health Status Allergies: Allergic Reactions (Selected) No known allergies. Past Medical/ Family/ Social History Medical history: No active or resolved past medical history items have been selected or recorded.. Surgical history: No active procedure history items have been selected or recorded.. Family history: Thyroid disease Grandmother (Maternal) Asthma Mother Sister Migraine Mother Sister Grandmother (Maternal) Bowel finding Father Comments: 10/09/2020 22:16 EDT - Holland MORFIN-C, Lanny A Dad with bowel issues that include recent bloody stool and need for infusions HTN - Hypertension Grandmother (Maternal) . 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 Problem list: Active Problems (4) Eczema Encounter for well child visit at 15 years of age Immunization counseling Pediatric body mass index (BMI) of 5th percentile to less than 85th percentile for age . Medical Decision Making Orders Launch Orders Laboratory: Test Urine 1 (Order): Urine, Stat collect, 07/04/2021 23:00 EDT, Nurse collect Urinalysis with Culture, if indicated Standard (Order): Urine, Stat collect, 07/04/2021 23:00 EDT, Nurse collect, Launch Orders Laboratory: D-Dimer (Order): Blood, Stat collect, 07/04/2021 23:48 EDT, Lab Collect CBC w/ Auto Diff (Order): Blood, Stat collect, 07/04/2021 23:47 EDT, Lab Collect CMP Standard (Order): Blood, Stat collect, 07/04/2021 23:48 EDT, Lab Collect Lipase Level (Order): Blood, Stat collect, 07/04/2021 23:48 EDT, Lab Collect Pharmacy: ibuprofen (Order): 400 mg, PO, Once. Reexamination/ Reevaluation Time: 07/05/2021 01:22:00 . Vital signs Still has discomfort, but abd soft, no longer touchy. Informed that this sounds like ovulation discomfort. She states she is not working tomorrow Use iburpfen, heating bad, f/u L Holland, may need uls (gu cysts a problem in the family). Impression and Plan Diagnosis Abdominal pain (PNED [id number], Reason For Visit, Emergency medicine, Medical) Plan Condition: Improved. Disposition: D (more content not included)... Normal [facility] ED Patient Summaryon 022 ED Patient Summary [facility] - Emergency Department [address] [place] [address] PATIENT DISCHARGE INSTRUCTIONS Patient Information Name: MADELIN AHUJA Age: 16 Years Date of : 2005 Reason For Visit: Abdominal pain; ABD PAIN Arrival Time: 07/04/2021 22:55:52 Primary Care Physician: Lanny Martins Attending Physician: Nathaniel Drew DO Comment: Visit Diagnosis: Diagnoses This Visit Abdominal pain ([id number]) Prescription Information: If you have been given a prescription for narcotics, seek immediate medical attention if you have any difficulty breathing or any sudden status changes such as confusion and sleepiness. If you or anyone you know is experiencing suicidal thoughts, mental health, alcohol and/or drug addiction problems; contact the [facility] 12/10 Crisis Hotline -Text 4HPTU to 477458. If you received any narcotics, sedation, or any other medication that causes drowsiness for the next 24 hours, unless otherwise directed: ? Do not drive a car. ? Do not operate machinery such as power tools, lawn mowers, drills, sewing machines, or stoves ? Avoid alcoholic beverages and drugs for allergies, nerves, or sleep ? Do not make important personal or business decisions or sign any legal documents With: Address: When: Lanny Lino [address] [place], [place] [address] Business (1) Within 3 to 5 days Comments: home ibuprofen ---four hundred mg three times per day, as needed heating pad this should all resolve, but still recheck with Dr Lino for an ultrasound Call Dr Drew, in the ER, anytime next three days, nights [phone], and Dr Drew will call you tomorrow evening to check on you T Mey DREW< ER PHYSICIAN< [facility] Medication Information: The exam and treatment you received today in the [facility] Emergency Department were for an urgent problem and are not intended as complete care. It is important for you to follow up with a doctor, nurse practitioner, or physician?s assistant spa manager for ongoing care. If your symptoms become worse or you do not improve as expected and you are unable to reach your usual health care provider, you should return to the Emergency Department, we are available 24 hours a day. For those patients who have received Radiology results, the interpretation of your X-ray as given to you by our Emergency Department physician is only a preliminary report. The Radiologist will review your films and if there is a change in the diagnosis you will be notified by phone. Please make sure you have provided a working phone number so we can reach you if necessary. In the event that you had a lab culture while you were a patient in the Emergency Department, you will be notified by phone if there is a need to change your antibiotic. Please make sure you have provided a working phone number so we can reach you if necessary. [facility] Emergency Department has provided you with a complete list of medications post discharge. Please inform your primary care coordinator/provider of your visit and for further instruction on these medications. Any specific questions regarding your chronic medications and dosages should be discussed with your primary care physician(s) and/or pharmacist. Visit Information Allergies: Substance Reaction Symptoms Type Comments No known allergies Drug Vital Signs: Vitals and Measurements this Visit (last charted value for your 07/04/2021 visit) Vital Signs This Visit Temperature Oral: 36.6 DegC Peripheral Pulse Rate: 81 bpm Respiratory Rate: 14 br/min Systolic Blood Pressure: 138 mmHg Diastolic Blood Pressure: 88 mmHg SpO2: 99 % Oxygen Therapy: Room air Measurements This Visit Height/Length Dosin.860 cm Height/Length Estimated: 149.860 cm Weight Dosin.360 kg Weight Estimated: 45.360 kg Problems List: Problem Onset Comments Eczema Encounter for well child visit at 15 years of age Immunization counseling Pediatric body mass index (BMI) of 5th percentile to less than 85th percentile for age Patient Education Abdominal Pain, Adult Many things can cause belly (abdominal) pain. Most times, belly pain is not dangerous. Many cases of belly pain can be watched and treated at home. Sometimes, though, belly pain is serious. Your doctor will try to find the cause of your belly pain. Follow these instructions at home: Medicines ? Take jnwu-qxb-mjtdzoj and prescription medicines only as told by your doctor. ? Do not take medicines that help you poop (laxatives) unless told by your doctor. General instructions ? Watch your belly pain for any changes. ? Drink enough fluid to keep your pee (urine) pale yellow. ? Keep all follow-up visits as told by your doctor. This is important. Contact a doctor if: ? Your (more content not included)... Normal [facility] Extra Redon 07-05-2021 Tube Collected Yes Invalid Interpretation Code [facility] Comment on above: Result Comment: Jong ection date/time has been modified to: 00:35:00. Previous collection date/time: 00:35:00. Performed By: #### 2 [id number], [id number], [id number], [id number], [id number], [id number] #### [facility] (DEFAULT) [address] [place] [address] 75961 Lipaseon 07-05-2021 Lipase Level 30.0 IU/L Normal 22.0-51.0 [facility] Comment on above: Performed By: #### 2 [id number], [id number], [id number], [id number], [id number], [id number] #### [facility] (DEFAULT) [address] [place] [address] 23156 Test Urine 1on U Preg Negative [facility] Comment on above: Performed By: #### 3 [id number], [id number], [id number] #### [facility] (DEFAULT) [address] [place] [address] 63452 U Preg Internal Control Pass [facility] Comment on above: Performed By: #### 3 [id number], [id number], [id number] #### [facility] (DEFAULT) [address] [place] [address] 73578 UA Rzjjt7lf 07-05-2021 UA Bacteria Trace [facility] Comment on above: Order Comment: Urina lysis Microscopic order added on by [employer] Expert Rules system. Performed By: #### 3 [id number], [id number], [id number] #### [facility] (DEFAULT) [address] [place] [address] 34752 UA RBC None Seen [facility] Comment on above: Order Comment: Urina lysis Microscopic order added on by [employer] Rules system. Performed By: #### 3 [id number], [id number], [id number] #### [facility] (DEFAULT) [address] [place] [address] 46414 UA Squam Epi Rare [facility] Comment on above: Order Comment: Urina lysis Microscopic order added on by [employer] Rules system. Performed By: #### 3 [id number], [id number], [id number] #### [facility] (DEFAULT) [address] [place] [address] 79073 UA WBC 0-2 Normal [facility] Comment on above: Order Comment: Urina lysis Microscopic order added on by [employer] Expert Rules system. Performed By: #### 3 [id number], [id number], [id number] #### [facility] (DEFAULT) [address] [place] [address] UA w Culture if Ind Standard on 07-05-2021 Culture? Not Indicated Invalid Interpretation Code [facility] Comment on above: Result Comment: Resu lt created by rule GL_MAGR_ADD_UA_CULT Result created by rule GL_MAGR_ADD_UA_CULT Result created by rule GL_MAGR_ADD_UA_CULT1 Performed By: #### 3 [id number], [id number], [id number] #### [facility] (DEFAULT) [address] [place] [address] Glucose (U) [Mass/Vol] Negative [facility] Comment on above: Performed By: #### 3 [id number], [id number], [id number] #### [facility] (DEFAULT) [address] [place] [address] Ketones Ql (U) Negative [facility] Comment on above: Performed By: #### 3 [id number], [id number], [id number] #### [facility] (DEFAULT) [address] [place] [address] Micro? Indicated Invalid Interpretation Code [facility] Comment on above: Result Comment: Resu lt created by rule GL_MAGR_ADD_UA_MICRO Performed By: #### 3 [id number], [id number], [id number] #### [facility] (DEFAULT) [address] [place] [address] 80849 UA Bilirubin Negative [facility] Comment on above: Performed By: #### 3 [id number], [id number], [id number] #### [facility] (DEFAULT) [address] [place] [address] 30173 UA Blood Negative Normal [facility] Comment on above: Performed By: #### 3 [id number], [id number], [id number] #### [facility] (DEFAULT) [address] [place] [address] UA Leuk Est SMALL Abnormal NEGATIVE [facility] Comment on above: Performed By: #### 3 [id number], [id number], [id number] #### [facility] (DEFAULT) [address] [place] [address] 36352 UA Nitrite Negative Normal NEGATIVE [facility] Comment on above: Performed By: #### 3 [id number], [id number], [id number] #### [facility] (DEFAULT) [address] [place] [address] 24781 UA pH 6.5 Normal 5-8 [facility] Comment on above: Performed By: #### 3 [id number], [id number], [id number] #### [facility] (DEFAULT) [address] [place] [address] UA Protein Negative Normal NEGATIVE [facility] Comment on above: Performed By: #### 3 [id number], [id number], [id number] #### [facility] (DEFAULT) [address] [place] [address] UA Spec Grav <=1.005 Normal 1.001-1.035 [facility] Comment on above: Performed By: #### 3 [id number], [id number], [id number] #### [facility] (DEFAULT) [address] [place] [address] UA Urobilinogen 0.2 mg/dL Normal 0.2-1.0 [facility] Comment on above: Performed By: #### 3 [id number], [id number], [id number] #### [facility] (DEFAULT) [address] [place] [address] 06810 Breakpoint UA Normal [facility] Comment on above: Performed By: #### 3 [id number], [id number], [id number] #### [facility] (DEFAULT) [address] [place] [address] 71946 Color (U) Yellow Normal [facility] Comment on above: Performed By: #### 3 [id number], [id number], [id number] #### [facility] (DEFAULT) [address] [place], [place] [address] UA Clarity CLEAR Normal [facility] Comment on above: Performed By: #### 3 [id number], [id number], [id number] #### [facility] (DEFAULT) [address] [place] [address] 90617 Urine Source Clean Catch [facility] Comment on above: Performed By: #### 3 [id number], [id number], [id number] #### [facility] (DEFAULT) [address] [place] [address] 33557 Outside Recordson 10-10-2020 Outside Records [id number] #1.00OTGTIFF [facility] Outside Records [id number] [facility] 10-09-2020 Outside Records [id number]#[facility]ital Signs Date Time Vital Sign Value Performing Clinician Jai adriany 04-03-2024 08:57-0500 Body mass index (BMI) [Ratio] 21.17 kg/m2 Peter Estrada APRN-CNM Work Phone: [facility] 04-03-2024 08:57-0500 Body weight 47.54 kg [facility] H[facility]ING PROPERTY MANAGER-CNM Work Phone: [facility] 04-03-2024 08:57-0500 Diastolic blood pressure 64 mm[Hg] Peter Estrada HOUSING PROPERTY MANAGER-CNM Work Phone: [facility] 04-03-2024 08:57-0500 Systolic blood pressure 106 mm[Hg] Peter Estrada HOUSING PROPERTY MANAGER-CNM Work Phone: [facility] 02-09-2024 10:33-0500 Body height 149.9 cm [facility] [employer] Salesperson [facility] 02-09-2024 10:33-0500 Body mass index (BMI) [Ratio] 21.41 kg/m2 [facility] 02-09-2024 10:33-0500 Body weight 48.08 kg [facility] [employer] Salesperson [facility] 02-09-2024 10:33-0500 Diastolic blood pressure 80 mm[Hg] [facility] [employer] Salesperson [facility] 02-09-2024 10:33-0500 Systolic blood pressure 120 mm[Hg] [facility] 01-12-2024 15:03-0400 Body height 149.9 cm [facility] 01-12-2024 15:03-0400 Body mass index (BMI) [Ratio] 20.6 kg/m2 [facility] 01-12-2024 15:03-0400 Body weight 46.27 [facility] 01-12-2024 15:03-0400 Diastolic blood pressure 70 mm[Hg] [facility] 01-12-2024 15:03-0400 Systolic blood pressure 102 mm[Hg] [facility] Encounters Encounter Date Encounter Type Care Provider Facility Start: 04-03-2024 End: 04-03-2024 ambulatory [facility] Start: 04-03-2024 End: 04-03-2024 Office outpatient visit 15 minutes [facility] HOUSING PROPERTY MANAGER-CNM Work Phone: [facility] Comment on above: Encounter for oral c ontraception initial prescription (Primary Dx) Start: 03-29-2024 End: 03-29-2024 ambulatory [facility] Start: 02-16-2024 End: 02-16-2024 Orders Only Lanny Peña HOUSING PROPERTY MANAGER-POSTAL SORTING OFFICER Work Phone: [facility] Comment on above: Left ovarian cyst (P rimary Dx); Pelvic pain Start: 02-14-2024 End: 02-14-2024 ambulatory [facility] Start: 02-09-2024 End: 02-09-2024 ambulatory [facility] Start: 02-09-2024 End: 02-09-2024 Encounter for gynecological examination (general) (routine) without abnormal findings [facility] Work Phone: Start: 02-09-2024 End: 02-09-2024 Patient encounter procedure [facility] Start: 02-09-2024 End: 02-09-2024 Periodic preventive med est patient 18-39 yrs [facility] Ob Books Salesperson [facility] Comment on above: Well woman exam with routine gynecological exam (Primary Dx); Cervical smear, as part of routine gynecological examination; Standardized adult depression screening tool completed; Dysmenorrhea; Pelvic pain Start: 02-09-2024 End: 02-09-2024 ambulatory [facility] Start: 02-09-2024 Encounter for gynecological examination (general) (routine) without abnormal findings [facility] Start: 01-23-2024 End: 01-23-2024 Emergency department patient visit [facility] Start: 01-13-2024 End: 01-13-2024 Orders Only Lanny Cecelia Ben HOUSING PROPERTY MANAGER-POSTAL SORTING OFFICER Work Phone: [facility] Comment on above: Vaginal yeast infect ion (Primary Dx) Start: 01-12-2024 End: 01-12-2024 ambulatory [facility] Start: 01-12-2024 End: 01-12-2024 Office outpatient visit 15 minutes [facility] [employer] Salesperson [facility] Comment on above: Acute vaginitis (Kitty keith Dx) Start: 01-12-2024 End: 01-12-2024 ambulatory [facility] Start: 11-27-2021 End: 11-28-[address] IVAN CORENLIUS Facility:[facility]1 Procedures Date Procedure Procedure Detail Performing Clinician Start: 04-03-2024 Urine test visual color cmprsn methrogelio Estrada HOUSING PROPERTY MANAGER-CNM Work Phone: Start: 02-09-2024 Adult depression scr eening assessment [facility] Books Salesperson Start: 02-09-2024 Microscopic observat ion [Identifier] in Cervix by Cyto stain Lanny Peña HOUSING PROPERTY MANAGER-POSTAL SORTING OFFICER Work Phone: Plan of Treatment Date Care Activity Detail Author Start: 02-08-2027 Screening for malign ant neoplasm of cervix Pap Smear [facility] Start: 04-03-2025 Adult BMI Screening Adult BMI Screen ing [facility] Start: 04-03-2025 Tobacco Screening Tobacco Screening [facility] Start: 02-08-2025 Adult BMI Screening Adult BMI Screen ing [facility] Start: 02-08-2025 Depression Screening Depression Scre ening [facility] Start: 02-08-2025 Tobacco Screening Tobacco Screening [facility] Start: 01-11-2025 Adult BMI Screening Adult BMI Screen ing [facility] Start: 01-11-2025 Screening for Chlamy kaleb trachomatis Chlamydia Screening [facility] Start: 01-11-2025 Tobacco Screening Tobacco Screening [facility] Start: 02-16-2024 End: 02-15-2025 US Pelvis transabdominal and transvaginal Ultrasound pelvic with transvaginal Imaging Routine Left ovarian cyst Pelvic pain Expected: 02/16/2024, Expires: 02/15/2025 [employer] [employer] Work Phone: Comment on above: Expected: 02/16/2024 , Expires: 02/15/2025 Start: 02-14-2024 End: 02-14-2024 Patient encounter procedure 02/14/2024 10:00 AM EST Appointment [facility] - Ul[facility]ound [address] [place] [id number] Lanny Peña, HOUSING PROPERTY MANAGER-POSTAL SORTING OFFICER [address] [place] [address] [facility] Start: 02-09-2024 End: 02-08-2025 Cytopathology procedure, preparation of smear, genital source Pap Smear Pathology and Cytology Routine Cervical smear, as part of routine gynecological examination Expected: 02/09/2024 (Approximate), Expires: 02/08/2025 [employer] [facility] [employer] Work Phone: Comment on above: Expected: 02/09/2024 (Approximate), Expires: 02/08/2025 Start: 02-09-2024 End: 02-08-2025 US Pelvis transabdominal and transvaginal Ultrasound pelvic with transvaginal Imaging Routine Dysmenorrhea Pelvic pain Expected: 02/09/2024, Expires: 02/08/2025 [facility] Comment on above: Expected: 02/09/2024 , Expires: 02/08/2025 Start: 02-09-2024 End: 02-09-2024 Patient encounter procedure 02/09/2024 10:30 AM EST Office Visit [facility] [address] [facility] [place] [address] [facility] Start: 01-12-2024 End: 01-11-2025 Chlamydia/GC by PCR Radha Swab Chlamydia/GC by PCR Radha Swab Microbiology Routine Acute vaginitis Expected: 01/12/2024 (Approximate), Expires: 01/11/2025 [facility] Comment on above: Expected: 01/12/2024 (Approximate), Expires: 01/11/2025 Start: 01-12-2024 End: 01-11-2025 Vaginitis Panel PCR Vaginitis Panel PCR Microbiology Routine Acute vaginitis Expected: 01/12/2024 (Approximate), Expires: 01/11/2025 [facility] [employer] Work Phone: Comment on above: Expected: 01/12/2024 (Approximate), Expires: 01/11/2025 Start: 01-07-2024 Screening for malign ant neoplasm of cervix Pap Smear [facility] Start: 11-21-2023 Influenza vaccination Influenza Vacc ine [facility] Start: 2015 Depression Screening Depression Scre ening [facility] Start: 2014 DTaP,Tdap and Td Vaccines (6 - Tdap) DTaP,Tdap and Td Vaccines (6 - Tdap) [facility] Start: 2003 Screening for Chlamy kaleb trachomatis Chlamydia Screening [facility] Immunizations Immunization Date Immunization Notes Care Provider Fa cility 01-27-2008 influenza virus vacc ine, unspecified formulation [facility] Payers Date Payer Category Payer Commercial Managed C are - PPO [employer] [id number] 2024 Unknown [id number] 2022 Private Health Insurance [facility] SUREST/BIND [id number] 2022 Private Health Insurance [id number] 2021 Blue Cross Blue Shie ld Managed Care - Other ANTH [id number] 2003 Unknown [id number] 2003 Unknown [id number] 1286 2003 Unknown [id number] 1286 2003 Unknown [id number] 1286 2003 Unknown [id number] 1286 2003 Unknown [id number] 1286 2003 Unknown [id number] 1286 2003 Unknown [id number] 1286 2003 Unknown [id number] 1286 1959 Unknown [id number] 1959 Unknown [id number] Social History Date Type Detail Facility Start: 09-30-2021 Tobacco smoking stat [facility] Never smoked tobacco [facility] Start: 09-30-2021 Tobacco use and exposure Smokeless tobacco non-user [facility] Start: 01-12-2024 End: 02-09-2024 Alcoholic beverage intake Lifetime non-drinker (finding) [facility] Start: 01-12-2024 End: 04-03-2024 History of Social function [facility] Start: 01-12-2024 End: 04-03-2024 Tobacco use panel [facility] Childcare Unknown [facility] Start: 2003 Sex assigned at Not on file [facility] Start: 10-25-2014 Sex Female (finding) [facility] Start: 04-03-2024 Alcoholic beverage intake Current drinker of alcohol (finding) [facility] How often to you hav e a drink containing alcohol? Monthly or less [facility] How many standard drinks containing alcohol do you have on a typical day? 1 or 2 [facility] How often do you hav e 6 or more drinks on 1 occasion? Never [facility] Start: 04-03-2024 Alcohol Comment socially [facility] Clinical Notes 07-05-2021 to 04-03-2024 RAYSHAWN Ridley - 04/03/2024 8:45 AM LIZ Rollins - 02/09/2024 10:30 AM LIZ Rollins - 01/12/2024 3:00 PM EDT Note Date & Type Note Facility 04-03-2024 History of Present illness Narrative HPI Rodriguez Ahuja is a pleasant 19 y.o. female who presents for contraception counseling. Current contraception: condoms. Last intercourse was 2 months ago with condom. Periods are irregular, lasting 5-7 days. Dysmenorrhea: severe, occurring throughout cycle. Cyclic symptoms include anxiety, bloating, breast tenderness, changes in libido, constipation, depression, headache, insomnia, moodiness, and pelvic pain. No intermenstrual bleeding, spotting, or discharge. The patient has no complaints today. 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 HPV vaccinated: No Flu shot this flu season: No PHQ9 screening: No Menstrual History: Patient's last menstrual period was 03/17/2024 (exact date). The following portions of the patient's history were reviewed and updated as appropriate: allergies, current medications, past family history, past medical history, past social history, past surgical history, problem list, and medication reconciliation was completed including current medication and post discharge medication. Review of Systems As noted in HPI Objective Vitals: 106/64 Body mass index is 21.17 kg/m . Physical Exam Constitutional: Appearance: Normal appearance. She is normal weight. HENT: Head: Normocephalic and atraumatic. Eyes: General: No scleral icterus. Cardiovascular: Rate and Rhythm: Normal rate and regular rhythm. Heart sounds: Normal heart sounds. Pulmonary: Effort: Pulmonary effort is normal. Breath sounds: Normal breath sounds. Abdominal: General: There is no distension. Palpations: Abdomen is soft. There is no mass. Tenderness: There is no abdominal tenderness. There is no guarding or rebound. Hernia: No hernia is present. Skin: General: Skin is warm and dry. Neurological: General: No focal deficit present. Mental Status: She is alert. Psychiatric: Mood and Affect: Mood normal. Behavior: Behavior normal. Lab Review Urine test negative Assessment / Plan Madelin was seen today for contraception. Diagnoses and all orders for this visit: Encounter for oral contraception initial prescription 19 y.o. starting OCP (estrogen/progesterone), no contraindications. Discussed risks / benefits of BC options: OCPs, Educational information provided. All questions answered. Discussed recommendations for HPV vaccine between 9-45 yo. [facility] or the health department. Reviewed ACHES warning signs r/t slight increased risk of blood clot w/hormonal contraceptives, what to do for missed dose and need for condoms for first 7 days of taking OCP to prevent and thereafter to prevent STI RTO 2 weeks for UPT and Rx. For OCP; advised pelvic rest in the meantime JANIS Griffiths APRN, CNM Gayla M Sholey, APRN-CNM 04/03/24 1514 documented in this encounter [facility] 02-09-2024 History of Present illness Narrative Annual Well Woman Visit 02/09/2024 Rodriguez Ahuja is a pleasant 19 y.o. 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 Periods are irregular, lasting 4 days. Dysmenorrhea: moderate, occurring first 1-2 days of flow. Cyclic symptoms include anxiety and cramping and heavy flow with clots. Denies intermenstrual bleeding, spotting, or abnormal discharge. Patient reports constant pelvic pain for several years. Patient declines STD testing today. Complaints today: none Relationship status: in a relationship The patient reports that there is not domestic violence in her life. 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 [employer] Non-smoker Children NO Current contraception: condoms History of abnormal Pap smear: no Last pap: never Regular self breast exam: yes Last mammogram: na Family history of breast cancer: no Family history of uterine or ovarian cancer: no Family history of pancreatic or prostate cancer: no Family history of colon cancer: no HPV vaccinated: no PHQ9 depression screenin LMP 01/16/2024 OB History 0 Para 0 Term 0 0 AB 0 Living 0 SAB 0 IAB 0 Ectopic 0 Multiple 0 Live Births 0 The following portions of the patient's history were reviewed and updated as appropriate: allergies, current medications, past family history, past medical history, past social history, past surgical history and problem list. MEDICAL HX History reviewed. No pertinent past medical history. SURGICAL HX History reviewed. No pertinent surgical history. FAMILY HX Family History Problem Relation Age of Onset Hypertension Maternal Grandmother MEDS No current outpatient medications on file. No current facility-administered medications for this visit. ALLERGIES No Known Allergies Review of Systems Constitutional: Negative. Respiratory: Negative. Negative for chest tightness and shortness of breath. Cardiovascular: Negative. Negative for chest pain and palpitations. Gastrointestinal: Positive for constipation. Negative for diarrhea, nausea and vomiting. Endocrine: Negative. Genitourinary: Positive for dyspareunia, menstrual problem and pelvic pain. Musculoskeletal: Negative. Skin: Negative. Allergic/Immunologic: Negative. Neurological: Negative. Hematological: Negative. Psychiatric/Behavioral: Negative. Objective BP 120/80 Ht 149.9 cm (4' 11 ) Wt 48.1 kg (106 lb) LMP 01/16/2024 (Approximate) BMI 21.41 kg/m Physical Exam Vitals and nursing note reviewed. Constitutional: Appearance: Normal appearance. HENT: Head: Normocephalic and atraumatic. Cardiovascular: Rate and Rhythm: Normal rate and regular rhythm. Pulses: Normal pulses. Heart sounds: Normal heart sounds. Pulmonary: Effort: Pulmonary effort is normal. Breath sounds: Normal breath sounds. Chest: Breasts: Breasts are symmetrical. Right: Normal. No mass, skin change or tenderness. Left: Normal. No mass, skin change or tenderness. Abdominal: General: Bowel sounds are normal. Palpations: Abdomen is soft. Genitourinary: General: Normal vulva. Labia: Right: No rash or lesion. Left: No rash or lesion. Vagina: Normal. Cervix: Normal. Uterus: Normal. Tender. Not enlarged. Adnexa: Right adnexa normal and left adnexa normal. Right: No mass, tenderness or fullness. Left: No mass, tenderness or fullness. Musculoskeletal: General: Normal range of motion. Cervical back: Normal range of motion and neck supple. Skin: General: Skin is warm and dry. Neurological: Mental Status: She is alert and oriented to person, place, and time. Psychiatric: Mood and Affect: Mood normal. Speech: Speech normal. Behavior: Behavior normal. Thought Content: Thought content normal. Judgment: Judgment normal. Assessment/Plan: Madelin was seen today for gynecologic exam. Diagnoses and all orders for this visit: Well woman exam with routine gynecological exam Cervical smear, as part of routine gynecological examination - Pap Smear; Future Standardized adult depression screening tool completed Dysmenorrhea - Ultrasound pelvic with transvaginal; Future Pelvic pain - Ultrasound pelvic with transvaginal; Future Discussed contraception options to help with periods. Will await ultrasound. BMI is in the acceptable range. Breast self exam technique reviewed and patient encouraged to perform self-exam monthly. Discussed healthy lifestyle modifications. Educational material distributed. Follow up in 1 year for annual supervisor yard exam. Follow up sooner as needed. Await pap. Discussed ASCCP screening guidelines. Discussed taking a multivitamin. Discussed Calcium and Vitamin D for prevention of osteoporosis. Discussed recommendations for HPV vaccine between 9-45 yo. Can be received at [facility] or the [facility] department. Discussed need for yearly mammogram after 40 yo. Discussed colon cancer screening recommendations to begin at 45 yo, patient to discuss with PCP. All questions answered. JANIS Alvarez APRN-CNP Lisa M Krotzer, APRN-CNP 02/09/24 1117 documented in this encounter [facility] 01-12-2024 History of Present illness Narrative Madelin Ahuja is a 19 y.o.female. Patient's last menstrual period was 12/18/2023 (approximate).. She presents with c/o vaginal irritation, discharge. Patient reports pain with intercourse d/t irritation. Pt denies odor or pelvic pain. Current contraception:condoms OB History No obstetric history on file. MEDICAL HX History reviewed. No pertinent past medical history. SURGICAL HX History reviewed. No pertinent surgical history. FAMILY HX History reviewed. No pertinent family history. MEDS Current Outpatient Medications Medication Sig Dispense Refill triprolidine-pseudoephedrine (APRODINE) 2.5-60 mg tablet Take 1 tablet by mouth every 4 (four) hours. ibuprofen (MOTRIN) 800 mg tablet Take 1 tablet (800 mg total) by mouth 3 (three) times a day. (Patient not taking: Reported on 01/12/2024) 21 tablet 0 ondansetron ODT (ZOFRAN ODT) 4 mg disintegrating tablet Dissolve 1 tablet (4 mg total) on tongue every 8 (eight) hours as needed for nausea for up to 10 doses. (Patient not taking: Reported on 01/12/2024) 10 tablet 0 No current facility-administered medications for this visit. ALLERGIES No Known Allergies Review of Systems Review of Systems Constitutional: Negative. Genitourinary: Positive for dyspareunia and vaginal discharge. Negative for menstrual problem and pelvic pain. Neurological: Negative. Psychiatric/Behavioral: Negative. Objective BP 102/70 Ht 149.9 cm (4' 11 ) Wt 46.3 kg (102 lb) LMP 12/18/2023 (Approximate) BMI 20.60 kg/m Physical Exam Vitals and nursing note reviewed. Pulmonary: Effort: Pulmonary effort is normal. Genitourinary: General: Normal vulva. Labia: Right: No rash or lesion. Left: No rash or lesion. Vagina: Normal. Cervix: Normal. Musculoskeletal: General: Normal range of motion. Skin: General: Skin is warm and dry. Neurological: Mental Status: She is oriented to person, place, and time. Psychiatric: Mood and Affect: Mood normal. Behavior: Behavior normal. Thought Content: Thought content normal. Judgment: Judgment normal. Assessment/Plan: Madelin was seen today for vaginal discharge. Diagnoses and all orders for this visit: Acute vaginitis - Vaginitis Panel PCR; Future - Chlamydia/GC by PCR Radha Swab; Future Await cultures and treat as indicated. All questions answered. Encouraged to use a good lubricant with intercourse. Educational material provided through [employer]. RTO for annual / first pap (due now) or sooner as needed. JANIS Alvarez APRN-CNP Lisa M Krotzer, APRN-CNP 01/12/24 1523 [facility] Note Education Materials Gastroenterology Abdominal Pain, Adult Many things can cause belly (abdominal) pain. Most times, belly pain is not dangerous. Many cases of belly pain can be watched and treated at home. Sometimes, though, belly pain is serious. Your doctor will try to find the cause of your belly pain. Follow these instructions at home: Medicines ? Take mbwu-mux-ciussdd and prescription medicines only as told by your doctor. ? Do not take medicines that help you poop (laxatives) unless told by your doctor. General instructions ? Watch your belly pain for any changes. ? Drink enough fluid to keep your pee (urine) pale yellow. ? Keep all follow-up visits as told by your doctor. This is important. Contact a doctor if: ? Your belly pain changes or gets worse. ? You are not hungry, or you lose weight without trying. ? You are having trouble pooping (constipated) or have watery poop (diarrhea) for more than 2?3 days. ? You have pain when you pee or poop. ? Your belly pain wakes you up at night. ? Your pain gets worse with meals, after eating, or with certain foods. ? You are vomiting and cannot keep anything down. ? You have a fever. ? You have blood in your pee. Get help right away if: ? Your pain does not go away as soon as your doctor says it should. ? You cannot stop vomiting. ? Your pain is only in areas of your belly, such as the right side or the left lower part of the belly. ? You have bloody or black poop, or poop that looks like tar. ? You have very bad pain, cramping, or bloating in your belly. ? You have signs of not having enough fluid or water in your body (dehydration), such as: ? Dark pee, very little pee, or no pee. ? Cracked lips. ? Dry mouth. ? Sunken eyes. ? Sleepiness. ? Weakness. ? You have trouble breathing or chest pain. Summary ? Many cases of belly pain can be watched and treated at home. ? Watch your belly pain for any changes. ? Take dhxg-fpo-bxopaur and prescription medicines only as told by your doctor. ? Contact a doctor if your belly pain changes or gets worse. ? Get help right away if you have very bad pain, cramping, or bloating in your belly. This information is not intended to replace advice given to you by your health care provider. Make sure you discuss any questions you have with your health care provider. Document Revised: 07/17/2019 Document Reviewed: 07/17/2019 [employer] Patient Education ? 2020 [employer]. [facility] Evaluation note Diagnosis Acute vaginitis- Primary Unspecified vaginitis and vulvovaginitis [facility] Diagnosis Vaginal yeast infection- Primary Candidiasis of vulva and vagina [facility] Diagnosis Well woman exam with routine gynecological exam- Primary Routine gynecological examination Cervical smear, as part of routine gynecological examination Screening for malignant neoplasm of the cervix Standardized adult depression screening tool completed Dysmenorrhea Pelvic pain [facility] Diagnosis Left ovarian cyst- Primary Other and unspecified ovarian cyst Pelvic pain [facility] Diagnosis Encounter for oral contraception initial prescription- Primary [facility]* Attachments The following attachments cannot be sent through Care Everywhere. * Vaginitis (Rwandan) * Gynecological Exam (Rwandan) documented in [facility] encounterC[facility] HospitalInstructionsNot on file documented in this encounterC[facility] HospitalInstructions* Attachments The following attachments cannot be sent through Care Everywhere. * How to Perform Breast Self-Examination (Rwandan) * Control Options (Rwandan) * Painful periods (Rwandan) * Generalized anxiety disorder ([place]wandan) * Constipation, Adult ED ([place]wandan) [facility] System[facility]ructionsNot on file documented in [facility] SystemInstructionsNot on file [facility] Summary Purpose Family History No Family History Records FoundNo Family History Records FoundNo Family History Records FoundNo Family History Records FoundNo Family History Records Found Advance Directives No Advanced Directives Records FoundNo Advanced Directives Records FoundNo Advanced Directives Records FoundNo Advanced Directives Records FoundNo Advanced Directives Records Found Additional Source Comments INFORMATION SOURCE (unrecogn ized section and content) DATE CREATED AUTHOR 07/13/2021 [facility] DATE CREATED AUTHOR AUTHOR'S ORGANIZ ATION 03/19/2022 [facility] DATE CREATED AUTHOR AUTHOR'S ORGANIZ ATION 01/14/2024 [facility] DATE CREATED AUTHOR AUTHOR'S ORGANIZ ATION 04/03/2024 [facility] DATE CREATED AUTHOR AUTHOR'S ORGANIZ ATION 04/06/2024 [facility] Reason for Visit (unrecogniz ed section and content) Reason Comments Vaginal Discharge Pt c/o vaginal disch arge with irritation, minimal itching and denies odor. Reason Comments Gynecologic Exam Pt is here for annua l exam. Reason Comments Contraception OCP Care Teams (unrecognized sec tion and content) [facility] Relationship Specialty Start Date End Date Ivan Cornelius MD PCP - General Family Medicine 01/02/23 [facility] Porter Relationship Specialty Start Date End Date Ivan Cornelius MD PCP - General Family Medicine 01/02/23 [facility] Porter Relationship Specialty Start Date End Date Ivan Cornelius MD PCP - General Family Medicine 01/02/23 Hall Porter Relationship Specialty Start Date End Date Ivan Cornelius MD PCP - General Family Medicine 01/02/23 Hall Porter Relationship Specialty Start Date End Date Ivan Cornelius MD PCP - General Family Medicine 01/02/23 FOR RECORDS PERTAINING TO PATIENTS WHO ARE OR HAVE BEEN ENROLLED IN A CHEMICAL DEPENDENCY/SUBSTANCEABUSE PROGRAM, SOME INFORMATION MAY BE OMITTED. This clinical summary was aggregated from multiple sources. Caution should be exercised in using it in the provision of clinical care. This summary normalizes information from multiple sources, and as a consequence, information in this document may materially change the coding, format and clinical context of patient data. In addition, data may be omitted in some cases. CLINICAL DECISIONS SHOULD BE BASED ON THE PRIMARY CLINICAL RECORDS. [employer] [facility]. provides no warranty or guarantee of the accuracy or completeness of information in this document.
[2024-04-10 10:44] LABS: Basophils Percent Auto 0.4 % (0.2-2.0); Eosinophils Percent Auto 0.6 % (0.9-7.0); Hematocrit 41.1 % (36.0-48.0); Hemoglobin 13.6 g/dL (12.0-16.0); Lymphocytes Absolute Auto 1.3 10^3/uL (1.2-3.8); Lymphocytes Percent Auto 28.7 % (20.5-60.0); Mean Corpuscular HGB Conc 33.1 g/dL (29.9-35.2); Mean Corpuscular Hemoglobin 31.1 pg (26.7-34.0); Mean Corpuscular Volume 93.8 fL (81.0-99.0); Mean Platelet Volume 10.4 fL (9.5-13.5); Monocytes Absolute Auto 0.5 10^3/uL (0.3-0.8); Monocytes Percent Auto 9.9 % (1.7-12.0); Neutrophils Absolute Auto 2.8 10^3/uL (1.4-6.5); Neutrophils Percent Auto 60.4 % (43.0-75.0); Platelet Count 215 10^3/uL (150-450); Red Blood Count 4.38 10^6/uL (4.20-5.40); Red Cell Distribution Width 12.4 % (11.0-15.0); White Blood Count 4.6 10^3/uL (4.0-11.0)
[2024-04-10 11:08] LABS: Estimated Average Glucose 94 mg/dL; Glycohemoglobin A1C 4.9 % (4.5-6.2)
[2024-04-10 11:30] LABS: Alanine Aminotransferase 16 U/L (14-59); Albumin Globulin Ratio 1.4; Albumin Level 4.2 g/dL (3.4-5.0); Alkaline Phosphatase 61 U/L (46-116); Anion Gap 14.4; Aspartate Amino Transferase 18 U/L (15-37); BUN Creatinine Ratio 19.7; Carbon Dioxide 27.7 mmol/L (21.0-32.0); Chloride 103 mmol/L (98-107); Estimated GFR (African America >60 (>=60 mL/min/1.73m^2); Estimated GFR (Non-African Ame >60 (>=60 mL/min/1.73m^2); Free T3 2.57 pg/mL (2.18-3.98); Glucose 81 mg/dL (74-106); Potassium 4.1 mmol/L (3.5-5.1); Sodium 141 mmol/L (136-145); Total Protein 7.2 g/dL (6.4-8.2)
[2024-04-11 05:07] LABS: Insulin 6.7 uIU/mL (2.6-24.9)
== END 2024-04-10 10:08 | disposition home or self-care (01) ==
LOC: LAB 10:13
PROVIDERS: PCP Family Medicine; Visit Provider Family Medicine
DX: L65.9 Nonscarring hair loss, unspecified (principal); R53.83 Other fatigue
CPT/HCPCS: 36415; 80053; 83036; 83525; 83540; 84436; 84443; 84481; 85025